=== PATIENT | female | born 1935 | race Caucasian/White ===

== ENCOUNTER 2016-10-12 07:37 | Emergency (ER) | payer MEDICARE, OTHER ==
[~2016-10-12] VITALS: Ht 162.6 cm; Wt 46.0 kg
[~2016-10-12 07:37] MED LIST: LISI-571 PO; METF500T4 PO
[2016-10-12 07:41] VITALS: BP 171/98; PULSE 87; RESP 14; O2SAT 95
--- NOTE | 2016-10-12 08:03 | ED.REPORT ---
HPI-General Illness Date of Service Oct 12, 2016 ED Provider: Jayant Hart MD Pt is a an 81 y.o. female with a hx of asthma, DM, and malignant neoplasm of esophagus (remission) who presents to the ED accompanied by her c/o malaise onset 1 week ago. Pt reports associated decreased PO intake, weakness, lethargy, recent weight loss, mild productive cough, diarrhea, and chills. Denies fever, nausea, vomiting, dysuria, chest pain, abdominal pain, and SOB. Pt was seen by her PCP Dr. Barrett 4 days ago and dx with cachexia, a work-up including chest x-ray and blood work was performed. Pt's states that she is extremely poor at remembering to take her medication and he has to remind and encourage her too. He has not administered any of her medication within the last 12 hours as he is concerned to do so due to her current condition. Pt is a poor historian and defers to her to answer questions. Nursing Notes Stated Complaint: COUGH, NO EATING Chief Complaint: General Complaint Nursing Notes Reviewed: Yes Allergies: Coded Allergies: No Known Drug Allergies (Verified Allergy, Unknown, 02/09/16) Scheduled Lisinopril (Lisinopril) 5 Mg Tablet 5 MG PO DAILY Metformin (Metformin) 500 Mg Tablet 500 MG PO DAILY General Time Seen by MD: 08:02 Chief Complaint Not feeling well (Malaise) Hx Obtained From: Patient Arrived By: Walk-in Sudden in Onset?: Yes Onset Occurred: 1 week ago Symptom Duration: Since onset Severity: Current: No pain currently Severity: Maximum: No pain Past Medical History Past Medical History malignant neoplasm of esophagus-remission Reports: Asthma, Diabetes mellitus Reports: Urinary tract infection Past Surgical History Gum surgery Reports: Tonsillectomy Smoking History Never Smoker Social History Alcohol Use: 1-3 per day Drug Use: Denies drug use Other Social History: , Local resident Ambulatory Status Independent Review of Systems Decreased PO intake Full Review of Systems Constitutional: Reports: Chills, Lethargy, Malaise, Recent wt loss, Weakness - generalized, Denies: Fever Respiratory: Reports: Prod cough, clear (Mild), Denies: Shortness of breath Cardiovascular: Denies: Chest pain GI: Reports: Diarrhea, Denies: Abdominal pain, Nausea, Vomiting Female: Denies: Dysuria Complete sys rev & neg: except as marked. Physical Exam Vital Signs Vital Signs Date Time Temp Pulse Resp B/P Pulse Ox O2 Delivery O2 Flow Rate FiO2 10/12/16 07:41 36.0 87 14 171/98 95 Room Air Initial VS: Reviewed Extremities: Vascular intact, Neuro intact Skin: Warm, Dry, No cyanosis Neurologic: Alert, Oriented, Nonfocal Psychiatric: Mood/affect normal, Behavior normal, Normal thought content General/Constitutional: Awake, Alert, No acute distress, Not toxic appearing Appearance / Presentation: Positive: Cachectic Head / Eyes: Atraumatic, Normocephalic Pupils: Positive: Pinpoint Respiratory / Chest: No respiratory distress, No rales Wheezing / Retractions: Positive: Wheezing expiratory (diffuse) Rhonchorous cough Cardiovascular: No murmurs Heart Rate / Rhythm: Positive: Irregular rhythm, Tachycardia Abdomen: Atraumatic, Soft, No distention Interpretation & Diagnostics ECG Interpretation Time: 08:50 Interpreted by: ED physician Normal ECG Interpretation: Normal rate (77) Rhythm / Conduction: Atrial fibrillation Re-Eval/Medical Decision Med Decision/Clinical Course I have reviewed all recent testing from the outpatient realm from the of this month which is stable or benign. I discussed the case in detail with Dr. Barrett, primary care, there seems to be some degree of mild dementia as well. Her examination for me is very reassuring. I think that outpatient follow-up is appropriate and of arranged for an outpatient GI appointment at Dr. Barrett' s request with Ms. Garcia at 8:45 in the morning on the of this month Saturday. Source of Hx: Old records Time of Eval: 09:48 Re-Evaluation/Progress Note: Pt rechekced. states that pt has been complaining of bilateral earache. TM's are dull but no erythema or fluid present. states that pt is having problem with short-term memory. Discussed plan for discharge, pt and understand and agree with plan. Consultation : Referral / Consult Name: Elissa Barrett MD Consulted With: Primary care physician Call Returned at: 09:01 Note: Consulted with Dr. Barrett about pt condition. Recommends weighing her and GI consult. Counseled Regarding: Diagnosis, Lab results Discharge & Departure Primary Impression: Malaise and fatigue Additional Impression: Cough Disposition: Home Discharge Condition All VS Reviewed: Yes Condition: No Change Additional Instructions: Thank you for entrusting us with your care today. After reviewing your lab results, x-ray, and consulting with Dr. Barrett I am reassured that your symptoms are not due to an immediately dangerous condition. I do however recommend you follow-up with GI regarding your history of esophageal cancer. You have a scheduled appointment for October 17 at 8:45 in the morning with Ms. Garcia Referrals: Elissa Barrett MD (PCP) Scribe Attestation Portions of this note were transcribed by Cierra Cross. I, Dr. Hart personally performed the history, physical exam and medical decision-making; I reviewed and confirmed the accuracy of the information in the transcribed note. Signed by: Alfredo Bardales, 10/12/16 and 0956. copies to: Elissa Barrett MD, Kirk H MD Oct 12, 2016 08:03 CIERRA CROSS Oct 12, 2016 08:10
[2016-10-12 10:12] VITALS: BP 163/83; PULSE 73; O2SAT 95
[2016-12-03] MEDS ORDERED: DEX1 PO (08:44)
[2016-12-03] MEDS ORDERED: ALBU8.5H2 INHALATION (08:44)
[2016-12-03] MEDS ORDERED: OXYC-474 PO (08:44)
[2016-12-03] MEDS ORDERED: OMEP20CA11 PO (08:44)
[2016-12-03] MEDS ORDERED: ASPI-973 PO (08:44)
== END 2016-10-12 10:13 | disposition home or self-care (01) ==
LOC: SED 07:37
DX: R53.81 Other malaise (principal); R05 Cough; E11.9 Type 2 diabetes mellitus without complications; Z79.84 Long term (current) use of oral hypoglycemic drugs; Z85.01 Personal history of malignant neoplasm of esophagus

== ENCOUNTER 2016-10-14 09:07 | Emergency (ER) | payer MEDICARE, OTHER ==
[~2016-10-14] VITALS: Ht 162.6 cm; Wt 44.1 kg
[2016-10-14 09:10] VITALS: BP 181/90; PULSE 85; RESP 15; O2SAT 94
[2016-10-14] MEDS ORDERED: 0.9% Sodium Chloride 1,000 ML IV ONE (09:34)
--- NOTE | 2016-10-14 09:34 | ED.REPORT ---
HPI-General Illness Date of Service Oct 14, 2016 ED Provider: Cuauhtemoc James DO An 81 year old female with a history of asthma, diabetes mellitus, recurrent UTI 's and previous neoplastic esophageal cancer (remission) presents to the ED complaining of generalized weakness that began one week ago. is currently expressing concern because of decreased appetite, 10-15lbs of weight loss and worsening fatigue. He denies solid food intake for the past week. Symptoms have become increasingly worse since onset. Patient has a new onset cough that began 3 weeks ago. Patient was recently seen in the ED on 10/12 for similar symptoms and was discharged in good condition after a reassuring consult with the patient's PCP. Patient denies pain during swallowing or dysphagia. She currently has an appointment scheduled with a GI specialism for . BS was recorded at 109 this morning. Nursing Notes Stated Complaint: WEAKNESS Chief Complaint: General Complaint Nursing Notes Reviewed: Yes Allergies: Coded Allergies: No Known Drug Allergies (Verified Allergy, Unknown, 02/09/16) Scheduled Azithromycin (Zithromax) 250 Mg Tablet 250 MG PO DAILY Lisinopril (Lisinopril) 5 Mg Tablet 5 MG PO DAILY Metformin (Metformin) 500 Mg Tablet 500 MG PO DAILY General Time Seen by MD: 09:17 Chief Complaint Weakness Hx Obtained From: Patient Arrived By: Walk-in Sudden in Onset?: No Onset Occurred: 1 week ago Symptom Duration: Since onset Associated with: Reports: Cough Additional Notes: Fatigue Decreased appetite Pertinent Negative: Pt denies other symptoms Recent Healthcare: No recent hospitalization, Recent doctor visit Past Medical History Past Medical History Malignant neoplasm of esophagus-remission Reports: Asthma, Diabetes mellitus Reports: Urinary tract infection Past Surgical History Gum surgery Reports: Tonsillectomy Smoking History Never Smoker Social History Alcohol Use: 1-3 per day Drug Use: Denies drug use Other Social History: Good social support, , Local resident Ambulatory Status Independent Review of Systems Decreased appetite Denies dysphagia Full Review of Systems Constitutional: Reports: Fatigue, Recent wt loss (10-15 lbs ), Weakness - generalized, Denies: Chills, Fever Ears / Nose / Throat: Denies: Sore throat, Throat pain Respiratory: Reports: Non-productive cough, Denies: Shortness of breath GI: Denies: Abdominal pain, Nausea, Vomiting Endocrine: Reports: Weight loss Neurologic: Denies: Change LOC Complete sys rev & neg: except as marked. Physical Exam Vital Signs Vital Signs Date Time Temp Pulse Resp B/P Pulse Ox O2 Delivery O2 Flow Rate FiO2 10/14/16 13:51 36.9 78 16 113/67 98 Room Air 10/14/16 10:55 37 95 20 148/69 97 Room Air 10/14/16 09:10 35.8 85 15 181/90 94 Room Air Initial VS: Reviewed Neck: Supple, Non-tender, Full range of motion Neurologic: Alert, Oriented, Nonfocal Psychiatric: Mood/affect normal, Behavior normal, Normal thought content General/Constitutional: Awake, Alert Appearance / Presentation: Positive: Cachectic Head / Eyes: Atraumatic, Normocephalic, PERRL ENT: Atraumatic, Airway patent, Mucous membranes moist, Pharynx NL (Oropharynx normal ) Respiratory / Chest: Atraumatic, No respiratory distress Rales / Rhonchi: Positive: Rhonchi diffuse (rhonchorous cough) RESPIRATORY: coarse expiratory lung sounds in the anterior lung ferrara and the right lower lobe Cardiovascular: Heart rate NL, Heart sounds NL, No murmurs Heart Rate / Rhythm: Positive: Irreg irregular rhythm Abdomen: Atraumatic, Soft, Non-tender, BS normoactive, No distention Upper Extremities Upper Extremity / MS: Atraumatic, Neurologic intact, Vascular intact Lower Extremity / Pelvis / MS: Atraumatic, Neurologic intact, Vascular intact, No edema Skin: Atraumatic, Color NL, Warm, Dry Color / Condition: Positive: Skin turgor poor (Loose) Interpretation & Diagnostics Lab Results Interpretation Result Diagram: 10/14/16 1008 10/14/16 1008 Test 10/14/16 10:08 10/14/16 13:00 White Blood Count 7.7th/mm3 (3.8-10.1) Red Blood Count 5.77mil/mm3 (3.90-5.20) Hemoglobin 12.2g/dL (12.0-15.6) Hematocrit 38.7% (35.0-46.0) Mean Corpuscular Volume 67.1fL (81-100) Mean Corpuscular Hemoglobin 21.1pg (27.0-35.0) Mean Corpuscular Hemoglobin Concent 31.5% (32.0-37.0) Red Cell Distribution Width 20.4% (12.3-15.4) Platelet Count 199bil/L (150-400) Neutrophils (%) (Auto) 71.7% (40-74) Lymphocytes (%) (Auto) 12.0% (14-46) Monocytes (%) (Auto) 14.5% (4-12) Eosinophils (%) (Auto) 0.7% (0-5) Basophils (%) (Auto) 0.3% (0-3) Sodium Level 128mEq/L (134-144) Potassium Level 3.6mEq/L (3.5-5.2) Chloride Level 85mEq/L (97-108) Carbon Dioxide Level 22mmol/L (18-29) Blood Urea Nitrogen 11mg/dL (8-27) Creatinine 0.72mg/dL (0.57-1.00) Estimat Glomerular Filtration Rate 112mL/min (>59) Glucose Level 132mg/dL (60-99) Lactic Acid Level 1.5mmol/L (0.4-2.0) Calcium Level 9.1mg/dL (8.5-10.1) Magnesium Level 1.7mg/dL (1.6-2.6) Total Bilirubin 1.0mg/dL (0.0-1.2) Aspartate Amino Transf (AST/SGOT) 32U/L (0-50) Alanine Aminotransferase (ALT/SGPT) 17U/L (0-32) Alkaline Phosphatase 52U/L (25-165) Pro-B-Type Natriuretic Peptide 3058pg/mL (0-738) Total Protein 7.4g/dL (6.4-8.4) Albumin 4.4g/dL (3.4-5.0) Procalcitonin 0.05ng/mL (0.00-0.08) Thyroid Stimulating Hormone (TSH) 2.600uIU/mL (0.450-4.500) Urine Color Straw (YELLOW) Urine Appearance Clear (CLEAR,HAZY) Urine pH 7.5 (5.0-8.0) Urine Specific Shannon 1.006 (1.003-1.035) Urine Protein Negativemg/dL (NEG,TRACE) Urine Glucose (UA) Negativemg/dL (NEGATIVE) Urine Ketones Negativemg/dL (NEGATIVE) Urine Occult Blood Negative (NEGATIVE) Urine Nitrite Negative (NEGATIVE) Urine Bilirubin Negative (NEGATIVE) Urine Urobilinogen Normalmg/dL (NORMAL) Urine Leukocyte Esterase Negative (NEGATIVE) Urine RBC 0-2/hpf (0-2) Urine WBC 0-5/hpf (0-5) Urine Epithelial Cells Few/hpf (NONE-MOD) Urine Crystals None seen (NONE SEEN) Urine Bacteria None/hpf (NONE-FEW) Urine Hyaline Casts None/lpf (NONE) Urine Granular Casts None seen (NONE SEEN) Urine Waxy Casts None seen (NONE SEEN) Urine Red Blood Cell Casts None seen (NONE SEEN) Urine White Blood Cell Casts None seen (NONE SEEN) Urine Mucus None seen (None Seen) Urine Trichomonas None seen (NONE SEEN) Urine Yeast None (NONE SEEN) Urinalysis Comment None Urine Culture Reflexed Not indicated ECG Interpretation ECG Interpretation: Atrial fibrillation Rate 81 bpm Prolonged QT interval old anteroseptal infarct ols inferior infarct Time: 11:07 Interpreted by: ED physician Normal ECG Interpretation: No change from prior ECGs (10/12) X-Ray Chest Interpretation Chest Xray Interpretation: IMPRESSION: No change in left medial lung base pneumonia; Follow up plain films of the chest are recommended to ensure resolution, and to exclude underlying or central malignancy. Dictated by: Deshawn Barber M.D. on 10/14/2016 at 10:31 Interpretation / Wet Read by: Interpret - Radiologist Re-Eval/Medical Decision Med Decision/Clinical Course 81-year-old female presents with her concerned with decreased oral intake and feeling weak. Patient denies any pain, but states that she just does not feel hungry. She has had a ongoing wet cough. Chest x-ray today shows left lower lobe pneumonia which was demonstrated in previous x-ray. Patient and her note that she has not been treated with antibiotics for this finding. Obviously this effusion could be present from CHF or recurrence of her cancer, but pneumonia could certainly explain a decrease in appetite and weakness in an 81-year-old so we will elect to treat her for community-acquired pneumonia. She was given the first dose of azithromycin 500 mg orally in the ER today and also given ceftriaxone 1 g prior to discharge. She will finish the azithromycin prescription as an outpatient and follow-up with her primary care provider. I believe she also has follow-up with oncology in progress. I have also encouraged her to use ensure drinks as she seemed to do very well with 2 drinks in the ER today. She had moderate hyponatremia which was similar to one week ago, maybe slightly worse because of decreased fluid intake but was given 1 L of fluids today in the ER. She looked much better after her fluids and food intake here. Time of Eval: 09:34 Patient Status: Condition improved Re-Evaluation/Progress Note: PO trial is assigned. Time of Eval: 11:30 Patient Status: Condition improved Re-Evaluation/Progress Note: Patient is rechecked. She passes the PO trial. is informed of her lab results, X-ray results, EKG results and diagnosis. All of the patient's questions are adressed. She understands and agrees with the treatment plan. Counseled Regarding: Diagnosis, Lab results, Need for follow-up, When/why to return to ED Discharge & Departure Primary Impression: Community acquired pneumonia Additional Impressions: Anorexia Weakness Hyponatremia Disposition: Home Discharge Condition All VS Reviewed: Yes Condition: Stable Patient Instructions: Community-acquired Pneumonia (ED) Additional Instructions: Thank you for trusting us with your care this morning. Your emergency department evaluation including examination, lab work, EKG and chest X-ray revealed pneumonia. 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 Drink one with each meal. Please take 250 mg of azithromycin once per day to completion starting tomorrow. You received the first dose today in the emergency department. Schedule a follow-up appointment with your primary care physician in the next 2- 3 days for a recheck. Please return to the emergency department immediately for any new or worsening conditions including any shortness of breath, chest pain, fevers, chills, numbness/tingling or loss of consciousness. Referrals: Elissa Barrett MD (PCP) Elinoribmanuel Attestation Portions of this note were transcribed by Santosh Castillo. I, Dr. James personally performed the history, physical exam and medical decision-making; I reviewed and confirmed the accuracy of the information in the transcribed note. Signed by: Alfredo Maldonado, 10/14/16 1200. copies to: Elissa Barrett MD, Gary R DO Oct 14, 2016 09:34 SANTOSH CASTILLO Oct 14, 2016 09:39
[2016-10-14 10:20] LABS: BASOPHILS % (AUTO) 0.3 % (0-3); EOSINOPHILS % (AUTO) 0.7 % (0-5); MONOCYTES % (AUTO) 14.5 % (4-12); Mean Corpuscular Hemoglobin 21.1 pg (27.0-35.0); Mean Corpuscular Volume 67.1 fL (81-100); NEUTROPHILS % (AUTO) 71.7 % (40-74); Platelet Count 199 bil/L (150-400)
--- NOTE | 2016-10-14 10:33 | DRSVH ---
PROCEDURE: X-RAY CHEST, TWO VIEWS ([id number]) INDICATIONS: cough, shortness of breath, anorexia TECHNIQUE: 2 views of the chest were acquired. COMPARISON: [facility], CR, XR CHEST 2VW, 10/08/2016, 14:29. FINDINGS: Surgical changes and devices: None. Lungs and pleura: No pleural effusions or pneumothorax. Moderate patchy airspace opacity within the left medial lung base is unchanged. Mediastinum: Mediastinal contours are normal. Heart size is normal. Bones and chest wall: No suspicious bony abnormalities. Soft tissues appear unremarkable. IMPRESSION: No change in left medial lung base pneumonia; Follow up plain films of the chest are adelaide mmended to ensure resolution, and to exclude underlying or central malignancy. Dictated by: Deshawn Barber M.D. on 10/14/2016 at 10:31 Approved by: Deshawn Barber M.D. on 10/14/2016 at 10:31
[2016-10-14 10:55] VITALS: BP 148/69; PULSE 95; RESP 20; O2SAT 97
[2016-10-14 11:19] LABS: Magnesium 1.7 mg/dL (1.6-2.6)
[2016-10-14] MEDS ORDERED: cefTRIAXone Inj 1,000 MG in Dextrose 5% Minibag Plus 50 ML IV ONE (11:40)
[2016-10-14 13:20] LABS: APPEARANCE,URINE CLEAR (CLEAR,HAZY); COLOR,URINE STRAW (YELLOW); PH,URINE 7.5 (5.0-8.0)
[2016-10-14 13:21] LABS: OCCULT BLOOD,URINE NEGATIVE (NEGATIVE); UROBILINOGEN,URINE NORMAL (NORMAL)
[2016-10-14] MEDS ORDERED: ZIT250 PO (13:35)
[2016-10-14 13:51] VITALS: BP 113/67; PULSE 78; RESP 16; O2SAT 98
[2016-12-03] MEDS ORDERED: OXYC-474 PO (08:44)
[2016-12-03] MEDS ORDERED: ASPI-973 PO (08:44)
[2016-12-03] MEDS ORDERED: DEX1 PO (08:44)
[2016-12-03] MEDS ORDERED: OMEP20CA11 PO (08:44)
[2016-12-03] MEDS ORDERED: ALBU8.5H2 INHALATION (08:44)
== END 2016-10-14 13:36 | disposition home or self-care (01) ==
LOC: SED 09:07
DX: J18.9 Pneumonia, unspecified organism (principal); R63.0 Anorexia; R53.1 Weakness; E87.1 Hypo-osmolality and hyponatremia; J45.909 Unspecified asthma, uncomplicated; E11.9 Type 2 diabetes mellitus without complications; Z79.84 Long term (current) use of oral hypoglycemic drugs
CPT/HCPCS: 36415; 71020; 80053; 81000; 83605; 83735; 83880; 84145; 84443; 85025; 93005; 96361; 96365; 99285; J0696; J7030

== ENCOUNTER 2016-11-27 07:17 | Emergency (ER) | payer MEDICARE, OTHER ==
[~2016-11-27] VITALS: Ht 162.6 cm; Wt 47.7 kg
[~2016-11-27 07:17] MED LIST changes: +ZIT250 PO
[2016-11-27 07:24] VITALS: BP 120/82; PULSE 104; RESP 15; O2SAT 100
--- NOTE | 2016-11-27 07:37 | ED.REPORT ---
HPI-General Illness Date of Service November 27, 2016 ED Provider: Edgard Major DO An 81 year old female with a history of diabetes, atrial fibrillation and UTI presents to the ED complaining of bilateral lower extremity pain. The pt has been experiencing lower extremity edema for several months, which extends to her knee. This has been accompanied by lower extremity pain and shortness of breath with exercise, though she denies chest pain and has been able to walk. The pt has seen her PCP for these symptoms and had a normal x-ray at that time. The pt has been prescribed pain medications but has been reluctant to take them. Nursing Notes Stated Complaint: PAIN IN BOTH LEGS Chief Complaint: General Complaint Nursing Notes Reviewed: Yes Allergies: Coded Allergies: No Known Drug Allergies (Verified Allergy, Unknown, 02/09/16) Scheduled Azithromycin (Zithromax) 250 Mg Tablet 250 MG PO DAILY Ferrous Sulfate (Iron) 325 Mg Capsule.er 325 MG PO TID Furosemide (Furosemide) 20 Mg Tab 20 MG PO DAILY Lisinopril (Lisinopril) 5 Mg Tablet 5 MG PO DAILY Metformin (Metformin) 500 Mg Tablet 500 MG PO DAILY Pantoprazole DR (Protonix) 40 Mg Tablet 40 MG PO BID General Time Seen by MD: 07:32 Chief Complaint Other (bilateral lower extremity pain) Hx Obtained From: Patient, Spouse Arrived By: Walk-in Sudden in Onset?: No Onset Occurred: More than a week ago... Symptom Duration: Since onset Recent Healthcare: No recent hospitalization, Recent doctor visit Similar Sx Previous: No Past Medical History Past Medical History Malignant neoplasm of esophagus-remission Atrial fibrillation Reports: Asthma, Diabetes mellitus Reports: Urinary tract infection Past Surgical History Gum surgery Reports: Tonsillectomy Smoking History Never Smoker Social History Alcohol Use: 1-3 per day Drug Use: Denies drug use Other Social History: Good social support, , Local resident Ambulatory Status Independent Review of Systems shortness of breath with exertion Full Review of Systems Respiratory: Denies: Non-productive cough Cardiovascular: Denies: Chest pain GI: Denies: Abdominal pain Musculoskeletal: Reports: Extremity pain, Extremity swelling, Denies: Neck pain Skin: Denies Rash Complete sys rev & neg: except as marked. Physical Exam Vital Signs Vital Signs Date Time Temp Pulse Resp B/P Pulse Ox O2 Delivery O2 Flow Rate FiO2 11/27/16 11:04 36.1 84 20 133/64 99 Room Air 11/27/16 09:28 84 20 133/64 99 11/27/16 07:24 36.1 104 15 120/82 100 Room Air Initial VS: Reviewed General/Constitutional: Awake, Alert Head / Eyes: Atraumatic, Normocephalic, PERRL, EOMI ENT: Atraumatic, Airway patent, Mucous membranes moist Neck: Atraumatic, Supple, Full range of motion Respiratory / Chest: Atraumatic, Breath sounds NL, Breath sounds = bilat, No respiratory distress Cardiovascular: Heart rate NL, Regular rhythm, Heart sounds NL Abdomen: Atraumatic, Soft, Non-tender Back: Atraumatic, Full range of motion Upper Extremities Upper Extremity / MS: Atraumatic, Full range of motion Lower Extremity / Pelvis / MS: Full range of motion L>R 2+ lower extremity edema up to proximal tibia Skin: Color NL, No rash, Warm, Dry Rectum / Perineum: Atraumatic, No discharge, No lesions light brown stool guaiac positive Neurologic: Oriented X3, Speech NL, No motor deficits, No sensory deficits Psychiatric: Affect NL, Mood NL Interpretation & Diagnostics Lab Results Interpretation Result Diagram: 11/27/16 0822 11/27/16 0822 Test 11/27/16 08:22 White Blood Count 5.6th/mm3 (3.8-10.1) Red Blood Count 4.02mil/mm3 (3.90-5.20) Hemoglobin 8.7g/dL (12.0-15.6) Hematocrit 28.6% (35.0-46.0) Mean Corpuscular Volume 71.1fL (81-100) Mean Corpuscular Hemoglobin 21.6pg (27.0-35.0) Mean Corpuscular Hemoglobin Concent 30.4% (32.0-37.0) Red Cell Distribution Width 21.1% (12.3-15.4) Platelet Count 215bil/L (150-400) Neutrophils (%) (Auto) 69.3% (40-74) Lymphocytes (%) (Auto) 14.5% (14-46) Monocytes (%) (Auto) 11.7% (4-12) Eosinophils (%) (Auto) 3.6% (0-5) Basophils (%) (Auto) 0.7% (0-3) Sodium Level 136mEq/L (134-144) Potassium Level 4.9mEq/L (3.5-5.2) Chloride Level 99mEq/L (97-108) Carbon Dioxide Level 22mmol/L (18-29) Blood Urea Nitrogen 15mg/dL (8-27) Creatinine 0.95mg/dL (0.57-1.00) Estimat Glomerular Filtration Rate 81mL/min (>59) Glucose Level 179mg/dL (60-99) Calcium Level 9.0mg/dL (8.5-10.1) Magnesium Level 2.0mg/dL (1.6-2.6) Iron Level 17ug/dL (35-150) Total Iron Binding Capacity 419ug/dL (250-450) Percent Iron Saturation 4%sat (15-50) Unsaturated Iron Binding 402.0ug/dL Ferritin 7ng/mL (13-150) Total Bilirubin 0.7mg/dL (0.0-1.2) Aspartate Amino Transf (AST/SGOT) 20U/L (0-50) Alanine Aminotransferase (ALT/SGPT) 10U/L (0-32) Alkaline Phosphatase 54U/L (25-165) Troponin T 0.010ug/L (0.0-0.011) Pro-B-Type Natriuretic Peptide 2751pg/mL (0-738) Total Protein 6.6g/dL (6.4-8.4) Albumin 4.1g/dL (3.4-5.0) Hold [place] Top Tube Received (Received) ECG Interpretation ECG Interpretation: atrial fibrillation with a rate of 84 low voltage, extremity and precordial leads probable anteroseptal infarct, old Time: 08:53 Interpreted by: ED physician X-Ray Chest Interpretation Chest Xray Interpretation: IMPRESSION: Small bilateral pleural effusions. Dictated by: Eileen Diaz M.D. on 11/27/2016 at 8:30 Approved by: Eileen Diaz M.D. on 11/27/2016 at 8:35 Interpretation / Wet Read by: Interpret - Radiologist Re-Eval/Medical Decision Med Decision/Clinical Course Patient chief complaint is ankle pain however this seems to be resultant of symmetric bilateral lower extremity edema that does not appear to be infectious or due to a deep vein thrombosis on clinical exam. She does have bilateral pleural effusions and an elevated proBNP. She does not describe exertional chest pain or shortness of breath think this represents severe decompensated CHF though she may have CHF and it seems that furosemide is appropriate at this time. Additionally her hemoglobin has dropped that it is not at a critical level where emergent transfusion is indicated. Her guaiac is positive her stool is light brown. It appears that she has a chronic GI bleed. GI is consulted recommends Protonix, iron therapy and will help to arrange close outpatient endoscopy. Additionally furosemide as prescribed and strict return and follow-up precautions are given. Source of Hx: Old records Time of Eval: 09:38 Re-Evaluation/Progress Note: Pt rechecked, who is comfortable. Rectal examination is performed. Time of Eval: 11:00 Re-Evaluation/Progress Note: Pt rechecked, who is feeling well. The diagnosis and plan for discharge are discussed. The pt understands and agrees with the plan. All questions are addressed at this time. Consultation : Referral / Consult Name: Abhay Espinal MD Call Returned at: 10:03 Manager Testing: Agrees with eval, Agrees with plan Note: Spoke with Dr. Espinal, GI, regarding pt's case. Dr. Espinal recommends Protonix and discharge on iron 2 to 3 times daily. He will arrange for endoscopy. Counseled Regarding: Diagnosis, Lab results, Need for follow-up, When/why to return to ED Discharge & Departure Primary Impression: CHF (congestive heart failure) Additional Impressions: GI bleed Iron deficiency anemia due to chronic blood loss Disposition: Home Discharge Condition All VS Reviewed: Yes Condition: Stable Additional Instructions: The reason you have ankle pain is due to swelling in your legs which is likely caused by mild congestive heart failure. You should begin taking Lasix daily. You should call your marina dry dock manager or your primary doctor for an urgent outpatient echocardiogram. Incidentally, you have anemia and some microscopic intestinal bleeding found on exam today. It is not at the point where you need a blood transfusion as of now , however you should begin iron therapy and protonix in order to improve your anemia. You will also need close follow-up with gastroenterology. I have spoken with the global logistics analyst who took down your information in his office will call you today or tomorrow tomorrow to help coordinate an outpatient endoscopy. Begin taking the medications as prescribed. Return to the ER if you develop severe shortness of breath, chest pain, obvious bleeding, or any other concerns. Referrals: Elissa Barrett MD (PCP) Scribe Attestation Portions of this note were transcribed by Constance Pandey. I, Dr. Major personally performed the history, physical exam and medical decision-making; I reviewed and confirmed the accuracy of the information in the transcribed note. Signed by: Alfredo Alfaro, 11/27/2016 and 1101. copies to: Elissa Barrett MD, Timothy S DO November 27, 2016 07:37 CONSTANCE PANDEY November 27, 2016 08:04
[2016-11-27 08:34] LABS: BASOPHILS % (AUTO) 0.7 % (0-3); EOSINOPHILS % (AUTO) 3.6 % (0-5); MONOCYTES % (AUTO) 11.7 % (4-12); Mean Corpuscular Hemoglobin 21.6 pg (27.0-35.0); Mean Corpuscular Volume 71.1 fL (81-100); NEUTROPHILS % (AUTO) 69.3 % (40-74); Platelet Count 215 bil/L (150-400)
--- NOTE | 2016-11-27 08:36 | DRSVH ---
PROCEDURE: X-RAY CHEST ONE VIEW, PORTABLE ([id number]) INDICATIONS: lower extremity edema TECHNIQUE: One view of the chest was acquired. COMPARISON: [facility], CR, XR CHEST 2VW, 10/14/2016, 10:05. FINDINGS: Surgical changes and devices: None. Lungs and pleura: There is a small right pleural effusion which is new when compared with the prior c hest film dated 10/14/16. Small left pleural effusion or pleural blunting is redemonstrated. No pneumo thorax. Mediastinum: Mediastinal contours appear normal. Heart size is normal. Bones and chest wall: No suspicious bony lesions. Overlying soft tissues appear unremarkable. IMPRESSION: Small bilateral pleural effusions. Dictated by: Eileen Diaz M.D. on 11/27/2016 at 8:30 Approved by: Eileen Diaz M.D. on 11/27/2016 at 8:35
[2016-11-27 08:59] LABS: TROPONIN T 0.01 ug/L (0.0-0.011)
[2016-11-27 09:28] VITALS: BP 133/64; PULSE 84; RESP 20; O2SAT 99
[2016-11-27] MEDS ORDERED: Pantoprazole 4 mg/mL 10 mL Inj IVPUSH ONE (09:50)
[2016-11-27] MEDS ORDERED: Pantoprazole 40 mg ER24 Tablet PO ONE (09:55)
[2016-11-27] MEDS ORDERED: FUR20 PO (10:56)
[2016-11-27] MEDS ORDERED: PANT40TA2 PO (10:56)
[2016-11-27] MEDS ORDERED: FERR325C PO (10:56)
[2016-11-27 11:04] VITALS: BP 133/64; PULSE 84; RESP 20; O2SAT 99
[2016-12-03] MEDS ORDERED: DEX1 PO (08:44)
[2016-12-03] MEDS ORDERED: ALBU8.5H2 INHALATION (08:44)
[2016-12-03] MEDS ORDERED: ASPI-973 PO (08:44)
[2016-12-03] MEDS ORDERED: OMEP20CA11 PO (08:44)
[2016-12-03] MEDS ORDERED: OXYC-474 PO (08:44)
== END 2016-11-27 11:05 | disposition home or self-care (01) ==
LOC: SED 07:17
DX: I50.9 Heart failure, unspecified (principal); K92.2 Gastrointestinal hemorrhage, unspecified; D50.0 Iron deficiency anemia secondary to blood loss (chronic); I48.91 Unspecified atrial fibrillation; E11.59 Type 2 diabetes mellitus with other circulatory complications; J45.909 Unspecified asthma, uncomplicated; Z79.84 Long term (current) use of oral hypoglycemic drugs

== ENCOUNTER 2016-12-04 11:55 | Day surgery (SDC) | payer MEDICARE, OTHER ==
[~2016-12-04] VITALS: Ht 162.6 cm; Wt 49.0 kg
--- NOTE | 2016-12-04 07:53 | PCM.HPANE ---
Patient Data Surgeon Admitting Provider: Attending Provider:Abhay Espinal MD Primary Care Physician:Elissa Barrett MD Other Provider:Demetris Faustin Anesthesia Reason for Visit History Of Esophageal Cancer Ht/WT & BMI Body Mass Index Allergies Coded Allergies: No Known Drug Allergies (Verified Allergy, Unknown, 12/03/16) Past Anesthesia History Anesthesia History: Denies:: Abnormal Airway, Anesthesia Reactions, Difficult Intubation, Fam Anesthesia Reaction, Fam Malignant Hypertherm, Malignant Hyperthermia Diabetes History Hx Diabetes?: Yes (NIDDM) MRSA MRSA: No Medications Blood Thinner: Aspirin Active Scripts Pantoprazole DR (Protonix)40 Mg Lcoszh68 Mg PO BID #60 TABLET Ref 0 Prov:Edgard Major DO 11/27/16 Ferrous Sulfate (Iron)325 Mg Capsule.er325 Mg PO TID #90 TABLET Prov:Edgard Major DO 11/27/16 Furosemide 20 Mg Tab20 Mg PO DAILY #10 TABLET Ref 0 Prov:Edgard Major DO 11/27/16 Reported Medications Oxycodone (Roxicodone)5 Mg Tablet5 Mg PO Q4H PRN For Pain Ref 0 12/03/16 Omeprazole 20 Mg Capsule.dr20 Mg PO DAILY Ref 0 12/03/16 Aspirin 81 Mg Tgwiwm52 Mg PO DAILY Ref 0 12/03/16 Albuterol HFA (Proair HFA)8.5 Gm Hfa.aer.ad2 Puffs INHALATION Q4H #1 INHALER 12/03/16 Lisinopril 5 Mg Tablet5 Mg PO DAILY #30 TABLET Ref 0 07/13/16 Metformin 500 Mg Srvdce905 Mg PO DAILY 05/16/16 Discontinued Reported Medications Dexamethasone 1 Mg Tab1 Mg PO DAILY Ref 0 12/03/16 Discontinued Scripts Azithromycin (Zithromax)250 Mg Nfjcsh121 Mg PO DAILY #4 TABLET Ref 0 Prov:Cuauhtemoc James DO 10/14/16 History History of ENT Problems?: No HEENT History: Denies:: Abnormal Airway Difficult Intubation Hearing Problem Denture Type: None Teeth Condition: Within Normal Limits Hx of Heart Problems?: No Cardiovascular History: Denies:: AICD Atrial Fibrillation Cardiac Surgery Chest Pain Congestive Heart Failure Edema Heart Murmur (aortic valve insufficiency, mitral valve regurgitation) Hypertension Irregular Heartbeat (h/o PSVT) Pacemaker Valvular Heart Disease Hx of Respiratory Problem?: Yes Respiratory History: Positive for:: Dyspnea (current) Denies:: Tuberculosis Hx Neurologic Problems?: Yes Neurological History: Positive for:: Dementia (r/t underlying disease, w/out behavioral disturbance) Denies:: CVA Hx of GI Problems?: Yes Hx of Problems?: Yes Genitourinary History: Positive for:: Urinary Tract Infection Female Hx: Denies:: Currently Endometriosis Pelvic Inflammatory Problems with Breasts? Hx Musculoskeletal Problems?: Yes Musculoskeletal History: Denies:: Joint Replacement Hx of Psycho/Social Problems?: No Psycho Social History: Denies:: Anxiety Hx Depression Hx Surgeries?: Yes (esophagus cancer several years ago and treated at [facility]) Hx Any Other Health Problems?: Yes Other History: Positive for:: Cancer (esophageal ca) Hospitalization Denies:: Endocrine Disease Thyroid Disease History Blood Transfusions: Denies:: Blood Transfuse Reaction Blood Transfusions Hx Diabetes: Yes (NIDDM) Hx Alcohol Use: NoHx Substance Use: No Smoking Status: Never Smoker Have You Smoked inLast 12 mo: No Stop/Bang Risk Assessment Category Category 1A: Patient has history of documented sleep apnea, and HAS NOT received any narcotic, sedative or anesthesia administration during this stay. Category 1B: Patient has history of documented sleep apnea, and HAS received any narcotic , sedative or anesthesia administration during this stay Category 2: Patient has SUSPECTED Obstructive Sleep Apnea, and HAS received any narcotic , sedative or anesthesia administration during this stay. Category 3: Patient has SUSPECTED Obstructive Sleep Apnea and HAS NOT received narcotic, sedative or anesthesia administration during this stay. Category 4: Outpatient in Procedural Areas with known sleep apnea or who screen positive for High Risk via the STOP/BANG questionnaire. Exam Exam General Appearance: Alert, Oriented X3, Cooperative, No Acute Distress HEENT/AIRWAY: MP 2, Neck Movement (FROM), Mouth Opening (WNL) Lungs: Normal Air Movement Heart: Exam Unremarkable Plan Impression Patient chart reviewed, patient interviewed and anesthestic plan with risks, benefits, and alternatives discussed, and informed consent obtained. ASA Physical Status: ASA2 Mod Systemic Disease Anesthetic Plan: GA Bene/Risks/Altern/Consents: Yes HP Complete Prior to Induction: Yes Adrian Mendez MD December 04, 2016 07:52
[~2016-12-04 11:55] MED LIST changes: +ALBU8.5H2 INHALATION; +ASPI-973 PO; +DEX1 PO; +FERR325C PO; +FUR20 PO; +OMEP20CA11 PO; +OXYC-474 PO; +PANT40TA2 PO
[2016-12-04] MEDS ORDERED: fentaNYL-PF 50 mCg/mL 2 mL Inj ONE (11:56)
[2016-12-04] MEDS ORDERED: Propofol 10,000 mCg/mL 20 mL Inj ONE (11:56)
[2016-12-04 12:20] VITALS: BP 134/77; PULSE 71; RESP 14; O2SAT 100
[2016-12-04] MEDS ORDERED: Lactated Ringer's 1,000 ML IV SCH (12:41)
[2016-12-04] MEDS ORDERED: MetoCLOpramide 5 mg/mL 2 mL Inj IVPUSH PRN (12:45)
[2016-12-04] MEDS ORDERED: Ondansetron 2 mg/mL 2 mL Inj IVPUSH PRN (12:45)
[2016-12-04] MEDS: Lactated Ringer's 1,000 ML IV ONE ×2 (12:48→13:01)
[2016-12-04 13:06] VITALS: BP 106/64; PULSE 88; RESP 14; O2SAT 100
--- NOTE | 2016-12-04 13:08 | PCM.ANEP1 ---
Post Anesthesia Phase 1 PACU Phase 1 Assessment Vital Signs Vital Signs Date Time Temp Pulse Resp B/P Pulse Ox O2 Delivery O2 Flow Rate FiO2 12/04/16 13:06 88 14 106/64 100 Room Air 12/04/16 12:20 37.2 71 14 134/77 100 Room Air Anesthetic Administered: GA Level of Alertness: Awake, talking GARCIA's with Equal Strength: Yes Pain: No Nausea or Vomiting: No Oxygen Delivery: Room Air Lungs: Normal Air Movement Complications: No Follow up Care: No Adrian Mendez MD December 04, 2016 13:08
[2016-12-04 13:16] VITALS: BP 106/58; PULSE 94; RESP 16; O2SAT 100
[2016-12-04 13:20] VITALS: BP 99/59; PULSE 93; RESP 16; O2SAT 100
--- NOTE | 2016-12-04 13:53 | ENDO ---
[address] [address] ENDOSCOPY PROCEDURE PATIENT: KRISTIN LOPEZ : 1935 MR#: [id number] ADMIT: 12/04/2016 JOB ID: [id number] PRIMARY PROVIDER: Zion Barrett MD. PROCEDURE: Esophagogastroduodenoscopy. INDICATIONS: An 81-year-old female with a history of esophageal cancer, status post gastric pull-up. She is being described as cachectic. She has lost a considerable amount of weight but apparently not any in very recent memory. She reports that she is moving her bowel every day, but eats small frequent meals. She is not having any problems with dysphagia. EQUIPMENT: [id number]. SEDATION: Monitored anesthesia as provided by Dr. Isai Mendez. COMPLICATIONS: None identified. PROCEDURE INFORMATION: After the risks and benefits were explained, written and verbal informed consent was obtained, the patient was brought into the endoscopy suite and placed into the left lateral decubitus position. Sedation was achieved as above and the scope introduced into the mouth through the bite block and advanced to the second portion of the duodenum. The scope was slowly withdrawn to carefully examine the mucosa for any defects or lesions. The stomach was ultimately decompressed, the scope removed from the patient who tolerated the procedure well. FINDINGS: 1. Esophagus: This is a very short anastomosis. Was at about 17 cm from the incisors. No stricturing, no mass lesions. No ulceration, no acute erosive changes. The scope easily traversed into the stomach. 2. Stomach: This was a normal-appearing gastric pull-up anatomy. However, there was a moderate amount of retained food and liquid debris in the antrum of the stomach. There was minimal gastropathy. No focal lesions or ulcers. The pyloric channel was normal and patent and I was easily able to navigate the scope through this. 3. Duodenum: No ulcers, no mass lesions. There was food debris still refluxing from further down into D3. I did not appreciate any mucosal pathology. ENDOSCOPIC DIAGNOSIS: 1. Normal gastric pull-up anatomy. 2. Retained gastrointestinal food debris. RECOMMENDATIONS: 1. I note the patient had a CAT scan in June which demonstrated early small-bowel obstruction pattern. I would recommend repeat exam with CT enterography, 2. In the meantime, the patient is encouraged to take a little bit of MiraLAX on a daily basis to hopefully push all contents through her GI tract a little more efficiently. 3. The patient is encouraged to remember just how important complete mastication is, whenever facing a problem like this. 4. Follow up in GI clinic short-term.
[2017-01-10] MEDS ORDERED: ASCO250T7 PO (17:35)
[2017-01-10] MEDS ORDERED: VIT1TABL83 PO (17:35)
[2017-01-10] MEDS ORDERED: CARV3.122 PO (17:35)
[2017-01-10] MEDS ORDERED: FURO40TA4 PO (17:35)
== END 2016-12-04 23:59 | disposition home or self-care (01) ==
LOC: END 11:55
PROVIDERS: ATTEND Internal Medicine Gastroenterology
DX: R64 Cachexia (principal); Z85.01 Personal history of malignant neoplasm of esophagus; E46 Unspecified protein-calorie malnutrition; R53.1 Weakness; G31.84 Mild cognitive impairment of uncertain or unknown etiology; E78.2 Mixed hyperlipidemia; E11.9 Type 2 diabetes mellitus without complications; I27.2 Other secondary pulmonary hypertension; I47.1 Supraventricular tachycardia; J90 Pleural effusion, not elsewhere classified; Z92.3 Personal history of irradiation; Z79.51 Long term (current) use of inhaled steroids; Z79.84 Long term (current) use of oral hypoglycemic drugs; Z79.82 Long term (current) use of aspirin
CPT/HCPCS: 43235; J3010; J7120

== ENCOUNTER 2017-01-11 02:55 | Day surgery (SDC) | payer MEDICARE, OTHER ==
[~2017-01-11] VITALS: Ht 162.6 cm; Wt 52.2 kg
[2017-01-11] VITALS (16 sets, daily range): BP systolic 95–129; BP diastolic 45–81; PULSE 67–79; RESP 10–23; O2SAT 93–100
[~2017-01-11 02:55] MED LIST changes: +ASCO250T7 PO; +CARV3.122 PO; -DEX1 PO; -FUR20 PO; +FURO40TA4 PO; -LISI-571 PO; -OMEP20CA11 PO; +VIT1TABL83 PO; -ZIT250 PO
[2017-01-11] MEDS ORDERED: 0.9% Sodium Chloride 1,000 ML IV SCH (07:15)
[2017-01-11 07:52] LABS: BASOPHILS % (AUTO) 0.4 % (0-3); EOSINOPHILS % (AUTO) 2.7 % (0-5); MONOCYTES % (AUTO) 12.1 % (4-12); Mean Corpuscular Hemoglobin 20.9 pg (27.0-35.0); Mean Corpuscular Volume 70.4 fL (81-100); NEUTROPHILS % (AUTO) 68.8 % (40-74); Platelet Count 242 bil/L (150-400)
[2017-01-11] MEDS ORDERED: Heparin 1,000 Units/500 mL NS Premix IV ONE (08:31)
[2017-01-11] MEDS ORDERED: Heparin 10,000 Unit/1,000 mL NS Premix IV ONE (08:31)
[2017-01-11 08:40] LABS: INR 1.12 ratio
[2017-01-11] MEDS ORDERED: 0.9% Sodium Chloride 250 ML ONE (09:24)
[2017-01-11] MEDS ORDERED: Adenosine 3 mg/mL 2 mL Inj ONE (09:24)
[2017-01-11] MEDS ORDERED: Heparin 1,000 Unit/mL 10 mL Inj ONE (09:27)
[2017-01-11] MEDS ORDERED: fentaNYL-PF 50 mCg/mL 2 mL Inj ONE (09:29)
[2017-01-11] MEDS ORDERED: Nitroglycerin 50,000 mcg/250 mL D5W Premix IV ONE (09:30)
[2017-01-11] MEDS ORDERED: Atropine 1 mg/10 mL (Code) Syringe ONE (09:30)
--- NOTE | 2017-01-11 11:13 | NUR ---
Heart Catheterization- Patient ambulated to [facility] with . Alert and oriented. Denies complaints this am. Patient states she has had nothing to eat or drink, except for meds as instructed. Reviewed procedure with patient and and questions answered.
--- NOTE | 2017-01-11 12:12 | NUR ---
Received Returned from lab head about 1225. Small soft lump at right groin at exoseal site. No change to this point. Venous sheath still in with NS at tko infusing. IVF infusing per order. Assisted with bedpan x2 without change in groin but feels frequently like she needs to go. 16fr chu placed by Yakov Wellington RN per prn order. VSS. Tele Afib. Awaiting landscaping and groundskeeping laborer to pull venous sheath.
--- NOTE | 2017-01-11 13:20 | CS94 ---
[address] [address] DIAGNOSTIC CARDIAC CATHETERIZATION PATIENT: KRISTIN LOPEZ : 1935 MR#: [id number] ADMIT: 01/11/2017 JOB ID: [id number] SERVICE DATE: 01/11/2017 PROCEDURE: 1. Right and left heart catheterization. 2. Selective coronary angiography. 3. Attempted fractional flow reserve of the circumflex. INDICATION: Congestive heart failure. Coronary artery disease. PROCEDURAL DETAILS: The reader is referred to the procedure log for complete details. Briefly, it was done via femoral approach. An 8-[place] sheath was placed in the vein and a 5-[place] in the artery. Vaughn-Lamar catheter and standard José Miguel catheters were used for the left. HEMODYNAMICS: PA pressure was 45/20 with a mean of 31. The pulmonary artery wedge pressure had a lot of catheter whip, but the mean pressure was 31 and a prominent V-wave was noted. RA pressure was a mean of 19. LV pressure was 166 with a LVEDP of 21. There was no gradient upon pullback. Cardiac output by thermodilution was 2.5 L/minute and by Romina was 3.1. PA sat was 37 and FA sat was 98%. ANGIOGRAPHY: 1. Left main: No significant disease. 2. LAD is a tortuous vessel in its mid segment. It has a long tubular stenosis of about 40% to 60%. 3. Circumflex is nondominant. It has an eccentric, very focal discrete lesion of about 60% in its mid segment past the take-off of the first obtuse marginal branch. 4. The ramus intermedius is a moderate-caliber vessel and has a 50% lesion in its proximal part. 5. The right coronary artery is a dominant vessel. It is subtotally occluded past the takeoff of a large RV branch. The distal vessel is seen faintly via [id number] collaterals and it is also seen via [id number] collaterals. 6. LV-gram revealed LVEF of around 45%. 7. There is 2+ MR. MR was worse with post PVC beats. There is inferobasal akinesis. 8. FFR of the circumflex was 0.98, thereby indicating it is not hemodynamically significant. We attempted to do an FFR in the LAD, but because of the marked tortuosity of the vessel, we could not deliver a wire into the apical LAD. We tried using a balloon to redirect this wire; however, were unsuccessful. Given the fact that the LAD is tortuous and it is about a 2-2.5 mm vessel at that point, I decided to treat her medically and not persist with wiring. 9. In summary, this lady has moderate mitral regurgitation. She has mild to moderate pulmonary hypertension. Her LV function is mildly impaired. She has modest coronary artery disease in the left system. Her right coronary is totally occluded distally but this supplies an area that has already been infarcted. I think, her overall medical condition and advanced age, medical therapy would be appropriate.
--- NOTE | 2017-01-11 16:06 | NUR ---
SHANE DISCHARGE ASSUMED CARE OF PT AT 1545. PT AMBULATED IN AMEZCUA AND RIGHT GROIN REMAINED SOFT, NON TENDER, NO BLEEDING OR HEMATOMA NOTED. DISCHARGE INSTRUCTIONS INCLUDING F/U APPT, MEDICATIONS, AND POST HEART CATH AND SEDATION INSTRUCTIONS WERE REVIEWED WITH PT AND AND THEY VERBALIZED UNDERSTANDING. LEFT AC IV WAS DISCONTINUED, WELL. PT WAS DISCHARGED AT 1600 IN W/C WITH TO PRIVATE CAR.
== END 2017-01-11 23:59 | disposition home or self-care (01) ==
LOC: SOUO 02:55
PROVIDERS: ATTEND Internal Medicine Cardiovascular Disease
DX: I25.10 Atherosclerotic heart disease of native coronary artery without angina pectoris (principal); I25.82 Chronic total occlusion of coronary artery; I50.9 Heart failure, unspecified; I27.2 Other secondary pulmonary hypertension; I34.0 Nonrheumatic mitral (valve) insufficiency; E11.9 Type 2 diabetes mellitus without complications; I07.1 Rheumatic tricuspid insufficiency; I48.2 Chronic atrial fibrillation; E78.2 Mixed hyperlipidemia; F03.90 Unspecified dementia, unspecified severity, without behavioral disturbance, psychotic disturbance, mood disturbance, and anxiety; Z85.01 Personal history of malignant neoplasm of esophagus; Z79.82 Long term (current) use of aspirin; Z79.84 Long term (current) use of oral hypoglycemic drugs; I47.2 Ventricular tachycardia
CPT/HCPCS: 36415; 80048; 85025; 85610; 93460; 93571; 99152; 99153; C1725; C1769; J0153; J1200; J1644; J2060; J3010; J7030; J7050; Q9967

== ENCOUNTER 2017-03-20 14:21 | Inpatient (IN) | payer MEDICARE, OTHER ==
[2017-03-20] VITALS (8 sets, daily range): BP systolic 93–124; BP diastolic 61–91; PULSE 80–119; RESP 18–26; O2SAT 94–99
[~2017-03-20] VITALS: Ht 162.6 cm; Wt 57.2 kg
[~2017-03-20 14:21] MED LIST changes: -ALBU8.5H2 INHALATION; -OXYC-474 PO; -PANT40TA2 PO
--- NOTE | 2017-03-20 15:33 | DRSVH ---
PROCEDURE: X-RAY CHEST ONE VIEW, PORTABLE ([id number]) INDICATIONS: infection TECHNIQUE: One view of the chest was acquired. COMPARISON: [facility], CT, CT ABD PELVIS W CON, 07/13/2016, 21:37. [facility], CR, XR CHEST 2VW, 10/08/2016, 14:29. [facility], CR, XR CHEST 2VW, 10/14/2016, 10:05 . [facility], CR, XR CHEST 1VW (PORTABLE), 11/27/2016, 8:02. FINDINGS: Surgical changes and devices: None. Lungs and pleura: Bilateral small pleural effusions. No pneumothorax. Left basilar opacity may be r elated to a large hiatal hernia. Mediastinum: Mediastinal contours appear normal. Heart size is normal. Bones and chest wall: No suspicious bony lesions. Overlying soft tissues appear unremarkable. IMPRESSION: 1. Left basilar opacity may be related to a large hiatal hernia but superimposed pneumonia cannot be excluded. 2. Small bilateral effusions. Dictated by: Bryant Kirkland M.D. on 03/20/2017 at 15:26 Approved by: Bryant Kirkland M.D. on 03/20/2017 at 15:31
[2017-03-20 15:38] LABS: EOSINOPHILS % (AUTO) 0.7 % (0-5); Mean Corpuscular Volume 80.3 fL (81-100)
[2017-03-20 15:41] LABS: BASOPHILS % (AUTO) 0.1 % (0-3); MONOCYTES % (AUTO) 7.9 % (4-12); Mean Corpuscular Hemoglobin 25.2 pg (27.0-35.0); NEUTROPHILS % (AUTO) 87.8 % (40-74); Platelet Count 170 bil/L (150-400)
--- NOTE | 2017-03-20 15:48 | ED.REPORT ---
HPI-General Illness Date of Service Mar 20, 2017 ED Provider: Jayant Hart MD Erick is an 81-year-old female reporting history of type II diabetes presenting to emergency department with a chief complaint of right leg pain. She reports roughly 1 week history of right leg pain associated with a sore on her paris. She reports this has become quite severe in the last several days, making it difficult to walk. This has been associated with several episodes of nonbloody, nonbilious vomiting today as well as nonbloody diarrhea for several weeks. Also complains of a wet cough that began recently. Pain is been refractory to oxycodone that the patient had at home. Admits to poor cold tolerance. Denies fever, shaking chills, abdominal pain, urinary symptoms. The patient refers often to her when answering history questions, though he appears to be a somewhat difficult historian himself. Reports plans for follow-up March 27 with oncology for anemia and April 09 with cardiology, though they could not recall the indication. Nursing Notes Stated Complaint: RIGHT LEG PAIN Chief Complaint: R leg pain Nursing Notes Reviewed: Yes Allergies: Coded Allergies: No Known Drug Allergies (Verified Allergy, Unknown, 03/20/17) Scheduled Ascorbic Acid (Vitamin C) 250 Mg Tab.chew 250 MG PO DAILY Aspirin (Aspirin) 81 Mg Tablet 81 MG PO DAILY Carvedilol (Carvedilol) 3.125 Mg Tablet 3.125 MG PO BID Ferrous Sulfate (Ferrous Sulfate) 325 Mg Tablet 325 MG PO DAILY Furosemide (Furosemide) 40 Mg Tablet 20-40 MG PO DAILY take 1/2 tab daily/ if wt.gain>2lbs, take 1tab Lisinopril (Lisinopril) 5 Mg Tablet 5 MG PO DAILY Metformin (Metformin) 500 Mg Tablet 500 MG PO BID Vit B Comp/C/FA/Iron/Vit E (Vitamin B Complex Tablet) 1 Each Tablet 1 EACH PO DAILY General Time Seen by MD: 15:17 Chief Complaint Other (R leg pain ) Hx Obtained From: Patient Sudden in Onset?: Yes Onset Occurred: 1 week ago Symptom Duration: Since onset Recent Healthcare: No recent hospitalization, Recent doctor visit Past Medical History Past Medical History Malignant neoplasm of esophagus-remission Atrial fibrillation Reports: Asthma, Diabetes mellitus Reports: Urinary tract infection Past Surgical History Gum surgery Reports: Tonsillectomy Smoking History Never Smoker Social History Alcohol Use: "Social" Drug Use: Denies drug use Other Social History: Good social support, , Local resident Ambulatory Status Independent Review of Systems General: Denies fever, chills, malaise. HEENT: Denies congestion, headache, sore throat. Respiratory: Admits cough. Denies shortness of breath. Cardiovascular: Denies chest pain, palpitations. Gastrointestinal: Admits vomiting, diarrhea, denies abdominal pain. Genitourinary: Denies frequency, urgency, dysuria, hematuria. Otherwise as noted in HPI. Physical Exam General: Well appearing, well developed, well nourished, no acute distress. Head: Atraumatic, normocephalic. Eyes: No scleral icterus or injection. No discharge. Vision grossly intact. ENT: Voice clear, hearing grossly intact. Respiratory: Regular rate and rhythm. No respiratory distress. No increased work of breathing, speaks in complete sentences.Rales in bilateral bases; Cardiovascular: Tachycardic rate and regular rhythm, without murmur, gallop or rub. No pedal edema. Gastrointestinal: Abdomen flat and non-tender without guarding or rebound. Bowel sounds normoactive. Skin: Warm and dry. There is pigment loss that appears to be consistent with vitiligo. Neurological: Grossly nonfocal. Right le second meter by 3 cm area of eschar on the distal anterior paris surrounded by an area of redness and tenderness. Slight serous discharge. Tenderness over the area of redness as well as medial joint line of the knee, anterior tibia, malleoli. Pain with range of motion of right ankle. DP and PT pulses 2+. Psychological: Alert and oriented. Speech appropriate, linear and logical. Behavior appropriate. Vital Signs Vital Signs Date Time Temp Pulse Resp B/P Pulse Ox O2 Delivery O2 Flow Rate FiO2 03/20/17 14:23 37.0 119 24 124/91 98 Room Air Tachycardia, elevated blood pressure Initial VS: Reviewed Interpretation & Diagnostics Lab Results Interpretation Result Diagram: 03/20/17 1520 03/20/17 1520 Test 03/20/17 14:50 03/20/17 14:59 03/20/17 15:20 Lactic Acid Level 2.6mmol/L (0.4-2.0) Hold Purple Top Tube Received (Received) Hold Blue Top Tube Received (Received) Hold Red Top Tube Received (Received) Hold [place] Top Tube Received (Received) Hold [place] Top Tube Received (Received) White Blood Count 12.1th/mm3 (3.8-10.1) Red Blood Count 4.12mil/mm3 (3.90-5.20) Hemoglobin 10.4g/dL (12.0-15.6) Hematocrit 33.1% (35.0-46.0) Mean Corpuscular Volume 80.3fL (81-100) Mean Corpuscular Hemoglobin 25.2pg (27.0-35.0) Mean Corpuscular Hemoglobin Concent 31.4% (32.0-37.0) Red Cell Distribution Width 24.8% (12.3-15.4) Platelet Count 170bil/L (150-400) Neutrophils (%) (Auto) 87.8% (40-74) Lymphocytes (%) (Auto) 3.4% (14-46) Monocytes (%) (Auto) 7.9% (4-12) Eosinophils (%) (Auto) 0.7% (0-5) Basophils (%) (Auto) 0.1% (0-3) Sodium Level 132mEq/L (134-144) Potassium Level 4.8mEq/L (3.5-5.2) Chloride Level 95mEq/L (97-108) Carbon Dioxide Level 19mmol/L (18-29) Blood Urea Nitrogen 17mg/dL (8-27) Creatinine 0.90mg/dL (0.57-1.00) Estimat Glomerular Filtration Rate 86mL/min (>59) Glucose Level 162mg/dL (60-99) Calcium Level 8.6mg/dL (8.5-10.1) Magnesium Level 1.5mg/dL (1.6-2.6) Total Bilirubin 0.9mg/dL (0.0-1.2) Aspartate Amino Transf (AST/SGOT) 21U/L (0-50) Alanine Aminotransferase (ALT/SGPT) 9U/L (0-32) Alkaline Phosphatase 85U/L (25-165) Troponin T 0.034ug/L (0.0-0.011) Total Protein 7.0g/dL (6.4-8.4) Albumin 4.0g/dL (3.4-5.0) ECG Interpretation ECG Interpretation: Rate 110 A-fib Left anterior fascicular block Probable anterolateral infarct, age indeterminate Time: 15:24 Interpreted by: ED physician X-Ray Chest Interpretation Chest Xray Interpretation: PROCEDURE: X-RAY CHEST ONE VIEW, PORTABLE ([id number]) INDICATIONS: infection IMPRESSION: 1. Left basilar opacity may be related to a large hiatal hernia but superimposed pneumonia cannot be excluded. 2. Small bilateral effusions. Re-Eval/Medical Decision Source of Hx: Old records Time of Eval: 16:34 Re-Evaluation/Progress Note: Pt rechecked. Informed pt of need for admission. Pt understands and agrees with plan for admission. All questions addressed. Consultation : Referral / Consult Name: Reji Milner MD Consulted With: Hospitalist Call Returned at: 16:39 Plastic Parts Designer: Will see patient, Agrees with eval, Agrees with plan, Accepts admit Counseled Regarding: Diagnosis, Lab results, Need for admission Discharge & Departure Primary Impression: CAP (community acquired pneumonia) Additional Impression: Cellulitis Site of cellulitis: extremity Site of cellulitis of extremity: lower extremity Laterality: right Qualified Code: L03.115 - Cellulitis of right lower limb Disposition: ADMITTED TO HOSPITAL Discharge Condition All VS Reviewed: Yes Condition: Stable Referrals: Elissa Barrett MD (PCP) Scribe Attestation Portions of this note were transcribed by Eliazar Kwok. I, Dr. Hart personally performed the history, physical exam and medical decision-making; I reviewed and confirmed the accuracy of the information in the transcribed note. Attending Statement I have seen and examined the patient. I have reviewed the chart and agree with the documentation as recorded by the Midlevel Provider, including assessment, treatment plan, and disposition. Findings from my exam are included in documentation above. I assumed care of this patient from Mr. Lynn as the disposition appeared to be hospitalization. I interviewed the patient myself and obtained the history I also examined her myself. I concur with Mr. Lynn's assessment and plan. I spoke to the hospitalist myself the patient will be admitted for pneumonia and cellulitis. copies to: Elissa Barrett MD, Seth PA-C Mar 20, 2017 15:48 Eliazar Kwok Mar 20, 2017 16:35 Jayant aHrt MD Mar 20, 2017 17:05
[2017-03-20] MEDS ORDERED: 0.9% Sodium Chloride 500 ML IV ONE (15:50)
[2017-03-20] MEDS ORDERED: Ondansetron 2 mg/mL 2 mL Inj IVPUSH ONE (15:50)
[2017-03-20 15:53] LABS: TROPONIN T 0.034 ug/L (0.0-0.011)
[2017-03-20 16:04] LABS: Magnesium 1.5 mg/dL (1.6-2.6)
[2017-03-20] MEDS ORDERED: 0.9% Sodium Chloride 1,000 ML IV ONE ×2 (16:31→17:40)
[2017-03-20] MEDS ORDERED: Azithromycin Inj 500 MG in Dextrose 5% 250 ML IV ONE (16:35)
[2017-03-20] MEDS ORDERED: Clindamycin Inj 900 MG in IV Premix 1 EACH IV ONE (16:35)
[2017-03-20] MEDS ORDERED: Meropenem Inj 1,000 MG in 0.9% Sodium Chloride 100 ML IV ONE (16:35)
[2017-03-20] MEDS ORDERED: Magnesium Sulf 2 Gm/50mL Water 2 GM in IV Premix 1 EACH IV ONE (16:40)
--- NOTE | 2017-03-20 16:40 | DRSVH ---
PROCEDURE: X-RAY RIGHT TIBIA/FIBULA, TWO VIEWS ([id number]) INDICATIONS: lower leg pain, wound TECHNIQUE: 2 views of the tibia and fibula were acquired. COMPARISON: None. FINDINGS: Bones: No fractures or dislocations. No suspicious bony lesions. Soft tissues: No suspicious soft tissue calcifications or masses. IMPRESSION: Small vessel calcifications, which may indicate long-standing diabetes. No trauma found, no sign of gas in the soft tissues, no osteomyelitis or foreign body seen. Dictated by: Mark Perales M.D. on 03/20/2017 at 16:38 Approved by: Mark Perales M.D. on 03/20/2017 at 16:38
[2017-03-20] MEDS ORDERED: FERR-83 PO (16:52)
[2017-03-20] MEDS ORDERED: LISI-571 PO (16:52)
--- NOTE | 2017-03-20 17:21 | NUR ---
[facility] Medications reconcilled as per PCP list dated 03/06/2017. Unfortunately pt is unable to recall if she has taken her medications today, and unable to confirm names/dosing of her everyday medications, stating that her is her "nurse". The is not present and pt insists not to call him at this time (to confirm medications and LD/times), stating that he left for home not to long ago to take a nap. She would not want us to wake him up. Please follow up and verify LD/time taken when comes back to visit the pt. Thank you.
[2017-03-20] MEDS: 0.9% Sodium Chloride 1,000 ML IV SCH (17:40)
[2017-03-20] MEDS ORDERED: Ondansetron 2 mg/mL 2 mL Inj IVPUSH PRN (17:45)
[2017-03-20] MEDS ORDERED: Polyethylene Glycol (PEG) 17 Gm Powder PO PRN (17:45)
[2017-03-20] MEDS ORDERED: Alum-Mag Hydrox-Simeth 30 mL Suspension PO PRN (17:45)
--- NOTE | 2017-03-20 18:39 | NUR ---
Admit: Arrived to [facility] @ approx 1800 via stretcher. Transferred from stretcher to bed. Alert & oriented. Rt lower extremity red w/approx quarter size lesion, no drainage. States rt lower extremity pain tolerable at 6/10. IVFs and antibiotics infusing. Bed in low and locked position, bed rails up x2, call light within reach. VSS. Telemetry #46 on, Afib 96 per facilities technician.
[2017-03-20] MEDS ORDERED: Vancomycin Inj 750 MG in 0.9% Sodium Chloride 250 ML IV ONE (19:00)
[2017-03-20] MEDS: Vancomycin Dose per Pharmacist XX SCH (19:30)
[2017-03-20 19:36] LABS: Magnesium 2.6 mg/dL (1.6-2.6); Phosphorus 2.8 mg/dL (2.5-4.9)
[2017-03-20] MEDS ORDERED: Glucose 40% Oral Gel 15 Gm Tube PO PRN (20:15)
--- NOTE | 2017-03-20 20:16 | PCM.HPMED ---
Subjective Date of Service Mar 20, 2017 Primary Provider: Admitting Physician: Reji Milner MD Primary Care Physician: Elissa Barrett MD Attending Physician: Reji Milner MD Admit Status: From the Emergency Department, Full Admit Chief Complaint: Generalized weakness/3 days Watery diarrhea/3 day Worsening right leg pain/one day History of Present Illness: 81-year-old lady with past medical history of diabetes, anemia, history of esophageal cancer presented with generalized weakness of 3 days, and worsening right leg pain of 3 d and diarrhea of one day. describes that the patient has been having generalized weakness and worsening right leg pain for 3 days unable to walk to bath room and has to use bedside commode for the last 3 days. right leg pain progressively worsened and patient unable to stand up and shouts when touched gently which prompted ED visit. She also had frequent watery diarrhea today with an episode of vomiting. Patient had on and off dysphagia for the last few months.EGD 12/04/16 unremarkable. referred to oncology for ongoing anemia and has an appointment on March 27. She has dry cough for the last few days. Denies fever. She also has some dyspnea. Denies abdominal pain. ED course: Initial HR 119, afebrile. WBC 12.1, hemoglobin 10.4, lactate 2.6,Na 132, magnesium 1.5 Blood cultures sent. Meropenem, clindamycin and azithromycin given for suspected cellulitis and pneumonia. Review of Systems: Comprehensive review of systems performed, pertinent positives and negatives included in history of present illness Allergies Coded Allergies: No Known Drug Allergies (Verified Allergy, Unknown, 03/20/17) Home Medications Ascorbic Acid (Vitamin C) 250 Mg Tab.chew 250 MG PO DAILY Aspirin (Aspirin) 81 Mg Tablet 81 MG PO DAILY Carvedilol (Carvedilol) 3.125 Mg Tablet 3.125 MG PO BID Ferrous Sulfate (Ferrous Sulfate) 325 Mg Tablet 325 MG PO DAILY Furosemide (Furosemide) 40 Mg Tablet 20-40 MG PO DAILY take 1/2 tab daily/ if wt.gain>2lbs, take 1tab Lisinopril (Lisinopril) 5 Mg Tablet 5 MG PO DAILY Metformin (Metformin) 500 Mg Tablet 500 MG PO BID Vit B Comp/C/FA/Iron/Vit E (Vitamin B Complex Tablet) 1 Each Tablet 1 EACH PO DAILY PMH Malignant neoplasm of esophagus-remission History of Atrial fibrillation History of Asthma, Diabetes mellitus History of frequent Urinary tract infection Surgical History Resection of esophageal cancer Family History . reviewed and unremarkable. she says she lives ' [place] the [place] from [facility]' with her Social History Hx Alcohol Use: Yes Hx Substance Use: No Hx Tobacco Use: No Smoking Status: Never Smoker Exam Vital Signs Vital Sign - Last Date Time Temp Pulse Resp B/P Pulse Ox O2 Delivery O2 Flow Rate FiO2 03/20/17 20:10 36.4 80 18 99/62 94 Nasal Cannula 2.00 Exam Gen. patient is lying comfortably in hospital bed HEENT: Head is normocephalic atraumatic, Pupils equal and reactive, extraocular movements intact, Lungs bilateral basal rhonchi Heart tachycardic Abdomen soft nontender without hepatosplenomegaly Extremities pulses are present dorsalis pedis posterior tibialis and radial. Right paris 3x2 cm paris ulcer. Surrounding area erythematous and hot to touch. site is disproportionately very tender Skin is warm and dry there are no rashes, vitiligo Psych alert and oriented to person place and time Neuro cranial nerves II through XII are grossly intact Lymph: There is no lymphadenopathy appreciated in the cervical supra infraclavicular regions : no chu Lab and Diagnostics Result Diagram: 03/20/17 1520 03/20/17 1900 X-Rays, CTs and MRIs PROCEDURE: X-RAY CHEST ONE VIEW, PORTABLE ([id number]) INDICATIONS: infection IMPRESSION: 1. Left basilar opacity may be related to a large hiatal hernia but superimposed pneumonia cannot be excluded. 2. Small bilateral effusions. Dictated by: Bryant Kirkland M.D. on 03/20/2017 at 15:26 Additional Diagnostics: ANGIOGRAPHY: 01/11/17 1. Left main: No significant disease. 2. LAD is a tortuous vessel in its mid segment. It has a long tubular stenosis of about 40% to 60%. 3. Circumflex is nondominant. It has an eccentric, very focal discrete lesion of about 60% in its mid segment past the take-off of the first obtuse marginal branch. 4. The ramus intermedius is a moderate-caliber vessel and has a 50% lesion in its proximal part. 5. The right coronary artery is a dominant vessel. It is subtotally occluded past the takeoff of a large RV branch. The distal vessel is seen faintly via [id number] collaterals and it is also seen via [id number] collaterals. 6. LV-gram revealed LVEF of around 45%. 7. There is 2+ MR. MR was worse with post PVC beats. There is inferobasal akinesis. 8. FFR of the circumflex was 0.98, thereby indicating it is not hemodynamically significant. We attempted to do an FFR in the LAD, but because of the marked tortuosity of the vessel, we could not deliver a wire into the apical LAD. We tried using a balloon to redirect this wire; however, were unsuccessful. Given the fact that the LAD is tortuous and it is about a 2-2.5 mm vessel at that point, I decided to treat her medically and not persist with wiring. 9. In summary, this lady has moderate mitral regurgitation. She has mild to moderate pulmonary hypertension. Her LV function is mildly impaired. She has modest coronary artery disease in the left system. Her right coronary is totally occluded distally but this supplies an area that has already been infarcted. I think, her overall medical condition and advanced age, medical therapy would be appropriate. Yemi Brownlee MD 01/11/17 1011 <Electronically signed by Yemi Brownlee MD> 01/14/17 0817 Assessment & Plan 81-year-old lady with past medical history of diabetes, anemia, history of esophageal cancer presented with generalized weakness of 3 days, and worsening right leg pain of 3 d and diarrhea of one day. #Sepsis due to cellulitis/infected arterial ulcer vs GI vs pneumonia -Initially checked 119,BP in 90's,LA 2.6.wbc 12.1 -Source likely infected arterial ulcer with surrounding cellulitis vs pneumonia, GI sxs likley viral , -NS bolus and then 150ml/h -Received meropenem, clindamycin and azithromycin in ED. will continue Zosyn and vancomycin -Stool for C. difficile requested. No much leukocytosis. No recent antibiotic exposure. Hold off empiric C. difficile treatment -Blood culture pending, lactate trended down -KARI outpatient once cellulitis improved # Anemia -Heme/onc appointment on March 27 # Diabetes -Sliding-scale, hold metformin #History of esophageal cancer -Recent EGD unremarkable # h/o Afib -now in SR, continue carvedilol # CAD s/p recent angiogram without intervention -Continue home meds, aspirin and BB # suspected PAD and arterial ulcer -c/w ASA,may add statin for PAD and CAD tomorrow ppx -scd on left leg full code Patient admitted under inpatient status with expected length of stay > 2 midnights for severity of present symptoms, complexities of treatment plan and risk for adverse events Resuscitation Status: CPR: Attempt Resuscitation copies to: Elissa Barrett MD, Melaku MD Mar 20, 2017 20:16
[2017-03-20] MEDS ORDERED: Albuterol-Ipratropium 3 mL Inhalation Solution NEB PRN (20:20)
[2017-03-20 20:24] LABS: APPEARANCE,URINE TURBID (CLEAR,HAZY); COLOR,URINE YELLOW (YELLOW); OCCULT BLOOD,URINE MODERATE (NEGATIVE); PH,URINE 5.5 (5.0-8.0); UROBILINOGEN,URINE NORMAL (NORMAL)
--- NOTE | 2017-03-20 20:57 | PCM.PHAPRO ---
Progress Date of Service: Mar 20, 2017 Generalized weakness/3 days Watery diarrhea/3 day Worsening right leg pain/one day Vancomycin management per pharmacy Indication: sepsis due to cellulitis/infected arterial ulcer vs pneumonia Goal vancomycin trough: 15-20 Pertinent info: - Weight: 46.0 kg - SCr 0.90 (est CrCl 36 mL/min -- further reduced due to age). Loading dose vancomycin 750 mg IV once has been ordered (~16 mg/kg). Ordered maintenance vancomycin 500 mg IV Q24hrs. Pharmacokinetic modeling estimates trough of ~15.However, due to multiple patient factors (elderly, low BMI, reduced renal function), pharmacokinetic modeling is likely inaccurate. Will draw trough early (prior to 3rd dose). Trough has been ordered for 03/22 at 1930. Pharmacy to continue to monitor and dose vancomycin. Thank you, Babar Madrid Pharmacist Babar Madrid Mar 20, 2017 20:57
[2017-03-20] MEDS: Insulin LISPRO 300 Unit/3 mL Inj SUBQ SCH (22:00)
[2017-03-20] MEDS: Piper-Tazo 3.375 Gm/50 mL D5W Minibag Plus - Q8H over 4 hrs IV ONE ×2 (22:15)
[2017-03-20] MEDS ORDERED: Piper-Tazo 3.375 Gm/50 mL D5W Minibag Plus - Q8H over 4 hrs IV ONE ×2 (22:30)
[2017-03-21] VITALS (11 sets, daily range): BP systolic 87–113; BP diastolic 53–66; PULSE 59–92; RESP 16–20; O2SAT 91–99
[2017-03-21] MEDS: Piper-Tazo 3.375 Gm/50 mL D5W Minibag Plus - Q8H over 4 hrs IV ONE ×2 (00:12)
[2017-03-21] MEDS: 0.9% Sodium Chloride 1,000 ML IV SCH ×5 (00:59→18:13)
[2017-03-21] MEDS: Piperacillin-Tazo 3.375 Gm Inj 3.375 GM in Dextrose 5% Minibag Plus 50 ML IV SCH ×3 (02:39→18:13)
--- NOTE | 2017-03-21 05:48 | NUR ---
Pain/mentation/tele Pt c/o RT leg pain 02/28. Oxycodone 5mg given and the patient appeared to be asleep upon reassessment. Pt was alert and oriented x 3 upon arrival, but later on around 0300 she became forgetful. Pt repeatedly asked the same questions and she gave the exact same answers in return. Tele: AFIB hr 80s per surveillance system monitor. Care continues.
[2017-03-21 06:11] LABS: BASOPHILS % (AUTO) 0.2 % (0-3); EOSINOPHILS % (AUTO) 0.4 % (0-5); MONOCYTES % (AUTO) 9.3 % (4-12); Mean Corpuscular Hemoglobin 24.8 pg (27.0-35.0); Mean Corpuscular Volume 81.5 fL (81-100); NEUTROPHILS % (AUTO) 84.3 % (40-74); Platelet Count 149 bil/L (150-400)
[2017-03-21] MEDS: Insulin LISPRO 300 Unit/3 mL Inj SUBQ SCH ×4 (07:48→22:00)
[2017-03-21] MEDS: Vancomycin Dose per Pharmacist XX SCH (08:05)
--- NOTE | 2017-03-21 10:23 | DRSVH ---
PROCEDURE: US VENOUS LEG DUPLEX BILATERAL INDICATIONS: pain TECHNIQUE: Real-time imaging, as well as color and pulse Doppler interrogation, were performed of the deep veins of both legs from the inguinal ligament to the popliteal fossa. COMPARISON: None. FINDINGS: The deep veins are normally compressible, and free of intraluminal thrombus. Color and pu lse Doppler demonstrate normal phasic intravascular flow. There is normal augmentation response to d istal compression maneuver. Morphologically normal. Prominent right groin lymph nodes. Right calf edema. IMPRESSION: No deep venous thrombosis identified within either the left or right lower extremities. Lymph nodes present within the right groin largest measuring up to 7 mm in maximal AP diameter. Uday mmend clinical correlation and management. Dictated by: Ricky POLANCO Interpreted: Deshawn Barber MD on 03/21/2017 at 10:12 Approved by: Deshawn Barber M.D. on 03/21/2017 at 10:21
--- NOTE | 2017-03-21 11:29 | NUR ---
R leg pain pt reports leg pain 6/10, but refuses pain medication in order to be able to "accurately tell the doctor about the pain".
--- NOTE | 2017-03-21 11:41 | NUR ---
off floor pt transported in bed to CT.
--- NOTE | 2017-03-21 12:06 | PCM.PNMED ---
Subjective Date of Service Mar 21, 2017 Subjective Afebrile now. Tachycardia resolved. Blood culture 3/4 growing Gram-negative rods. Urinalysis with pyuria. Continues to have right leg pain Exam Vital Signs Vital Sign - Last Date Time Temp Pulse Resp B/P Pulse Ox O2 Delivery O2 Flow Rate FiO2 03/21/17 09:41 36.4 77 18 99/53 97 Nasal Cannula 2.00 Intake and Output 03/20/17 03/20/17 03/21/17 Cumulative From/Thru 15:00 23:00 07:00 03/20/17 14:23 - 03/21/17 06:34 Intake Total 1800 ml 3019 ml 4819 ml Output Total 450 ml 450 ml Balance 1800 ml 2569 ml 4369 ml Intake Oral 350 ml 350 ml IV Total 1800 ml 2669 ml 4469 ml Output Urine Total 450 ml 450 ml Exam Gen. patient is lying comfortably in hospital bed HEENT: Head is normocephalic atraumatic, Pupils equal and reactive, extraocular movements intact, Lungs bilateral basal rhonchi Heart tachycardic Abdomen soft nontender without hepatosplenomegaly Extremities pulses are present dorsalis pedis posterior tibialis and radial. Right paris 3x2 cm paris ulcer. Surrounding area erythematous and hot to touch. site is disproportionately very tender Skin is warm and dry there are no rashes, vitiligo Psych alert and oriented to person place and time Neuro cranial nerves II through XII are grossly intact Lymph: There is no lymphadenopathy appreciated in the cervical supra infraclavicular regions : no chu IVs and Medications Medications Reviewed: Medications were reviewed in detail Lab and Diagnostics Result Diagram: 03/21/1736 03/21/17 0536 X-Rays, CTs and MRIs PROCEDURE: X-RAY CHEST ONE VIEW, PORTABLE ([id number]) INDICATIONS: infection IMPRESSION: 1. Left basilar opacity may be related to a large hiatal hernia but superimposed pneumonia cannot be excluded. 2. Small bilateral effusions. Dictated by: Bryant Kirkland M.D. on 03/20/2017 at 15:26 PROCEDURE: US VENOUS LEG DUPLEX BILATERAL INDICATIONS: pain IMPRESSION: No deep venous thrombosis identified within either the left or right lower extremities. Lymph nodes present within the right groin largest measuring up to 7 mm in maximal AP diameter. Recommend clinical correlation and management. Dictated by: Ricky POLANCO Interpreted: Deshawn Barber MD on 03/21/2017 at 10: 12 Additional Diagnostics ANGIOGRAPHY: 01/11/17 1. Left main: No significant disease. 2. LAD is a tortuous vessel in its mid segment. It has a long tubular stenosis of about 40% to 60%. 3. Circumflex is nondominant. It has an eccentric, very focal discrete lesion of about 60% in its mid segment past the take-off of the first obtuse marginal branch. 4. The ramus intermedius is a moderate-caliber vessel and has a 50% lesion in its proximal part. 5. The right coronary artery is a dominant vessel. It is subtotally occluded past the takeoff of a large RV branch. The distal vessel is seen faintly via [id number] collaterals and it is also seen via [id number] collaterals. 6. LV-gram revealed LVEF of around 45%. 7. There is 2+ MR. MR was worse with post PVC beats. There is inferobasal akinesis. 8. FFR of the circumflex was 0.98, thereby indicating it is not hemodynamically significant. We attempted to do an FFR in the LAD, but because of the marked tortuosity of the vessel, we could not deliver a wire into the apical LAD. We tried using a balloon to redirect this wire; however, were unsuccessful. Given the fact that the LAD is tortuous and it is about a 2-2.5 mm vessel at that point, I decided to treat her medically and not persist with wiring. 9. In summary, this lady has moderate mitral regurgitation. She has mild to moderate pulmonary hypertension. Her LV function is mildly impaired. She has modest coronary artery disease in the left system. Her right coronary is totally occluded distally but this supplies an area that has already been infarcted. I think, her overall medical condition and advanced age, medical therapy would be appropriate. Yemi Brownlee MD 01/11/17 1011 <Electronically signed by Yemi Brownlee MD> 01/14/17 1838 Assessment & Plan 81-year-old lady with past medical history of diabetes, anemia, history of esophageal cancer presented with generalized weakness of 3 days, and worsening right leg pain of 3 d and diarrhea of one day. #Sepsis/gram negative bacteremia,acute,poa - due to UTI most likely . cellulitis/infected arterial ulcer also contributing -initial HR 119,BP in 90's,LA 2.6.wbc 12.1 -Source likely UTI.infected arterial ulcer with surrounding cellulitis contributing.,GI sxs of diarrhea likley viral which is now resolved , -NS bolus and then 150ml/h -Received meropenem, clindamycin and azithromycin in ED. switched to Zosyn and vancomycin 03/20. Main source of sepsis/infection seems to be UTI. Discontinue vancomycin. Continue Zosyn. Consulted ID -Stool for C. difficile requested. No much leukocytosis. No recent antibiotic exposure. Hold off empiric C. difficile treatment -Blood culture / growing GNRs,UA with pyuria but UCX mixed howard , lactate trended down -KARI for PVD workup outpatient once cellulitis improved # UTI ,acute ,poa -antibiotics as above -CT KUB requested # Watery diarrhea, resolved -probably viral # Anemia -Heme/onc appointment on March 27 # Diabetes -Sliding-scale, hold metformin #History of esophageal cancer -Recent EGD unremarkable # h/o Afib -now in SR, continue carvedilol # CAD s/p recent angiogram without intervention -Continue home meds, aspirin and BB # suspected PAD and arterial ulcer -c/w ASA,may add statin for PAD and CAD tomorrow -LE venous duplex negative for DVT. Inguinal lymph nodes seen # small pleural effusions,chronic ,seen on prior CXRs -unclear etiology # hyponatremia, improving -due to hypovolumia -c/w NS at 150ml/h # Initially suspected pneumonia, ruled out -Pneumonia clinically likely. ppx -scd on left leg full code Patient admitted under inpatient status with expected length of stay > 2 midnights for severity of present symptoms, complexities of treatment plan and risk for adverse events disposition:. Pending blood culture sensitivity VTE Mechanical Devices: Venous Foot Pump Resuscitation Status: CPR: Attempt Resuscitation Reji Milner MD Mar 21, 2017 12:06
--- NOTE | 2017-03-21 12:41 | DRSVH ---
PROCEDURE: CT KUB ([id number]) INDICATIONS: urosepsis TECHNIQUE: Noncontrast 5 mm thick sections acquired from the diaphragms to the symphysis. 5 mm thick coronal an d sagittal reformats were then performed. For radiation dose reduction, the following was used: aut omated exposure control, adjustment of mA and/or kV according to patient size. COMPARISON: None. FINDINGS: Image quality: Excellent. Lung bases: Lung bases are clear. Heart size is normal. There is a large hiatal hernia. There are bilateral pleural effusions probably moderate in size. Urinary system: Both kidneys are normal in size. There are thought to be small central nonobstructin g calcifications bilaterally. Vascular calcifications are present as well. No hydronephrosis . Both u reters appear non-dilated throughout their expected courses. Bladder wall thickness is increased fro m normal but the bladder is fully distended.; no calcified bladder stones. Other solid organs: Ascites is present. Liver and spleen are normal in size. Scattered small calcifi cations indicate small granulomata. Gallbladder appears contracted.. Pancreas is normal in contours. No adrenal nodules. Peritoneum and bowel: Unenhanced bowel loops demonstrate normal caliber. No free air Nodes and vessels: No retroperitoneal or mesenteric adenopathy by size criteria. Aorta and inferior vena cava are normal in caliber. Abdominal wall: No ventral hernias. There is increased density of the subcutaneous fat suggesting s ome edema or fluid. Pelvis: There is moderate pelvic fluid. No inguinal hernias or adenopathy. Uterus appears prominent in size. Fibroids cannot be excluded. Pelvic ultrasound to examine the uterus and ovaries would be u seful in this patient. Bones: No suspicious bony lesions. 3 cannulated screws are seen in the proximal left femur No verteb ral body compression fractures. IMPRESSION: 1. Moderate amount of ascites including bilateral pleural effusions and also some increased density o f subcutaneous fat suggesting third spacing of fluid. 2. Prominent appearing uterus. Ovaries cannot be well defined. Suggest pelvic ultrasound to evaluate for abnormality of the structures. 3. No adenopathy or metastatic lesions are identified. No specific mass is seen. 4. Large hiatal hernia seen on previous studies. Old granulomatous disease. 5. Small nonobstructing calcification seen in each kidney vascular calcifications. Dictated by: Yariel Alvarez M.D. on 03/21/2017 at 11:56 Approved by: Yariel Alvarez M.D. on 03/21/2017 at 12:40
--- NOTE | 2017-03-21 14:30 | CONS ---
[address] [address] CONSULTATION REPORT PATIENT: KRISTIN LOPEZ : 1935 MR#: [id number] ADMIT: 03/20/2017 JOB ID: [id number] INFECTIOUS DISEASE CONSULTATION: DATE OF SERVICE: 03/21/2017 REQUESTING PHYSICIAN: Reji Milner MD I thank, Dr. Milner for this timely consult. REASON FOR CONSULTATION: Gram-negative bacteremia. 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 She presented to the hospital with a multi-day history of progressive weakness and pain in her right leg below the knee. She is a very vague and somewhat difficult historian but she refuses to answer certain questions and seems unable to attach any duration to any of her symptoms, but it sounds as if for days or perhaps weeks, she has had pain in both legs below the knees but especially on the right side. She denies any associated fevers, chills, or sweats, though she did mention to the other examiners that she may have had some chills. In any event, she presented here because of increasing generalized weakness and pain in the right leg for three days. It was felt initially that she might have a very severe soft tissue infection and she was started on very broad coverage including vancomycin, meropenem, and clindamycin, though that subsequently has been narrowed. In addition to her initial complaints of the right lower extremity, she reported loose watery bowel movements, though today she denies that to me. It is also noted in the chart that she may have had an episode of vomiting which she again states she has not had and she specifically denies nausea, vomiting, anorexia or diarrhea at any point in recent days. She states she has a rare cough but no significant shortness of breath. No pleuritic chest pain. No abdominal pain. No urgency, frequency, or dysuria at any time. In the emergency department, it was noted that she was somewhat anemic, tachycardic and had a lactic acidosis. Because of concerns about sepsis, she was started on very broad-spectrum antibiotics on the when she was admitted. Early this morning, it was discovered that her blood cultures were actually growing gram-negative rods and it was also noted that she had pyuria on the urinalysis which led to increasing concerns about the possibility of a complicated urinary tract infection, so antibiotics were changed to Zosyn at this point. ID consultation is requested regarding antibiotic management. PAST MEDICAL HISTORY: 1. Diabetes mellitus. 2. Esophageal cancer in remission. 3. Organic heart disease. a. AFib. b. Coronary artery disease. 4. Anemia. 5. History of recurrent UTIs. SOCIAL HISTORY: The patient is from [place], though she refused to say what country. She immig[place] to the [place] 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 She neither smokes nor drinks. She and her traveled widely but mainly in [place] at this point, and they are bit fans of opera. FAMILY HISTORY: Negative for TB in first and second-degree relatives. REVIEW OF SYSTEMS: At this point, the patient basically denies symptoms and she says she has no headache, no visual complaints. No sore throat. No trouble swallowing. No significant cough, shortness of breath or chest pain. No abdominal pain. No nausea, vomiting, diarrhea, or dysuria. No frequency. She does note she has pain in the right lower extremity below the knee of unknown duration and unknown severity. The remainder of the review of systems was negative or she refused to answer. PHYSICAL EXAMINATION: Reveals an elderly, appearing woman with a temperature 36.4. She has been afebrile since her admission now a little over a day ago. Pulse 77, respiratory rate 18, blood pressure 99/53. She is saturating well on 2 L. Does not appear to be in any distress. She has fairly impressive vitiligo which encompasses most of the body. Her mental status seems to be clear, though she refuses to attach any durations to her symptoms and declines to answer questions for no apparent reason, but she is clearly oriented and able to relate very accurate stories about happenings here in [facility]. Her head is without trauma. There is no temporal wasting. Sinuses nontender. Eyes without conjunctivitis. Oral cavity: No thrush or hairy leukoplakia. The neck is supple. No JVD. No adenopathy. Lungs relatively clear. Cardiac tones irregular rate and rhythm without notable murmur. Abdomen soft and nontender without organomegaly or ascites. No suprapubic fullness. She does not have a Melvin catheter. She does not have any evidence of synovitis. She is neurologically intact. She has bilateral venous stasis changes both legs below the knees, but the right leg has a small abrasion over the lower paris and surrounding area of circumferential warm tender cellulitis superimposed on the venous stasis changes. LABORATORY DATA: Include a white count 12,000, measured on two occasions both with left shift. Creatinine is 0.92. LFTs are normal. Albumin 3.3. Urinalysis with greater than 50 white cells, and the urine culture is growing mixed howard. Blood cultures are growing gram-negative rods. Interestingly the BioFire PCR is unable to determine what these are, which would exclude many common gram-negative organisms. IMAGING: I reviewed the patient's chest x-ray, which showed a left basilar opacity. The radiologist believes this may be a hernia. Additionally an x-ray of her leg shows no notable abnormalities; that is an x-ray of the right tibia. Doppler ultrasound of the right leg negative for DVT. CT scan of the abdomen shows moderate ascites with bilateral pleural effusions. No other notable abnormalities are seen except a large hiatal hernia. IMPRESSION: This is a bit of an odd case of a woman who was brought in by her because of three days of weakness, gastrointestinal complaints and right leg tenderness. The patient did not appear terribly toxic on admission even though her white count was somewhat elevated with a left shift and multiple blood cultures almost immediately are growing gram-negative rods. These gram-negative rods are not typable using our BioFire PCR system which looks for a variety of gram negatives including an Enterobacteriaceae general probe for all enteric gram-negative rods, and more specific probes for enterobacter, E. coli, Klebsiella, Proteus, Serratia, H flu, Neisseria and Pseudomonas. This brings up the possibility that this bacteremia is from some totally different probably nonfermenting type gram-negative lona which could not be recognized by the BioFire. A secondary question here is where is this unusual gram-negative lona arising from. The patient has some cellulitis of the right lower extremity but it is not dramatically bad, and it would be quite odd to have bacteremic gram-negative cellulitis though it is of course possible. Initially in the emergency department, she complained of gastrointestinal symptoms which she now adamantly denies, and it does not seem that she has any current abdominal symptoms, so I would not suspect that is the cause. Also possible, of course, would be urinary tract infection as she does have pyuria, but her urine is growing a mixture of organisms and not a single predominant organism. At this point, my conclusion is she is probably bacteremic from her right lower extremity, though the possibility of a complicated bacteremic urinary tract infection cannot be ruled out. The nature of this gram-negative lona remains completely unclear. RECOMMENDATIONS: 1. We await the identification of the organism tomorrow. 2. We can discontinue most current antibiotics including azithromycin, clindamycin and meropenem. 3. I would continue with Zosyn for now as it covers the vast majority of both aerobic and anaerobic gram-negative rods and the patient is not currently toxic. 4. Additional imaging may be indicated once we have identified this organism. Thank you very much for this interesting consult.
--- NOTE | 2017-03-21 16:24 | NUR ---
Social Work: Brief Note SW visited patient's room in an attempt to complete initial assessment for discharge planning. SW visited patient's room and explained role. Patient was in agreement with answering questions. After SW began speaking to patient, patient began speaking in another language. SW informed patient that she did not understand what she was saying. Patient continued to speak in different language. SW excused herself and informed patient that she would return with an tonsorial artist. Patient began speaking again but this time in Peruvian and informed SW that she did not need a cook station present. Patient stated that she does not participate in long conversations and did not want any further questions ask. SW thanked patient for her time. SW met with primary nurse and explained the situation that took place. RN informed SW that patient is alert and oriented and has been speaking only Peruvian with other staff. SW attempted to contact patient's Yariel Sow but was unable to reach him by phone. WANDY will reattempt initial assessment at a later time. ANTONY Frost
--- NOTE | 2017-03-21 17:34 | NUR ---
agitated pt got angry at the SUPERVISING EDITOR TRAILER for waking her to check vitals, pt is becoming more agitated with staff when care is being offered. pt asks to "just be left alone for awhile". This RN told patient that we will attempt to let her rest as much as possible but we will need to come in to check on her now and then. pt agrees with plan to allow her to rest with less interruptions, visiting now.
[2017-03-21] MEDS ORDERED: Vancomycin Inj 500 MG in 0.9% Sodium Chloride 100 ML IV SCH (19:30)
[2017-03-22] VITALS (8 sets, daily range): BP systolic 103–140; BP diastolic 59–90; PULSE 66–107; RESP 18–20; O2SAT 94–98
[2017-03-22] MEDS: Piperacillin-Tazo 3.375 Gm Inj 3.375 GM in Dextrose 5% Minibag Plus 50 ML IV SCH ×3 (03:33→17:45)
[2017-03-22] MEDS: Insulin LISPRO 300 Unit/3 mL Inj SUBQ SCH ×4 (07:38→22:00)
[2017-03-22 08:51] LABS: BASOPHILS % (AUTO) 0.4 % (0-3); EOSINOPHILS % (AUTO) 1.7 % (0-5); MONOCYTES % (AUTO) 7.9 % (4-12); Mean Corpuscular Hemoglobin 25.5 pg (27.0-35.0); NEUTROPHILS % (AUTO) 82.2 % (40-74); Platelet Count 144 bil/L (150-400)
--- NOTE | 2017-03-22 10:49 | PCM.PNMED ---
Subjective Date of Service Mar 22, 2017 Subjective Generalized weakness improving. Patient states she wants to go home today if possible. Exam Vital Signs Vital Sign - Last Date Time Temp Pulse Resp B/P Pulse Ox O2 Delivery O2 Flow Rate FiO2 03/22/17 07:55 88 20 98 Room Air 03/22/17 05:25 36.7 113/73 03/21/17 16:55 2.00 Intake and Output 03/21/17 03/21/17 03/22/17 Cumulative From/Thru 15:00 23:00 07:00 03/20/17 14:23 - 03/22/17 06:38 Intake Total 1698 ml 1193 ml 7710 ml Output Total 300 ml 150 ml 900 ml Balance 1398 ml 1043 ml 6810 ml Intake Oral 472 ml 100 ml 922 ml IV Total 1226 ml 1093 ml 6788 ml Output Urine Total 300 ml 150 ml 900 ml # Bowel Movements 0 0 0 Exam Gen. patient is lying comfortably in hospital bed HEENT: Head is normocephalic atraumatic, Pupils equal and reactive, extraocular movements intact, Lungs bilateral basal rhonchi Heart tachycardic Abdomen soft nontender without hepatosplenomegaly Extremities pulses are present dorsalis pedis posterior tibialis and radial. Right paris 3x2 cm paris ulcer. Surrounding area erythematous and hot to touch. site is disproportionately very tender Skin is warm and dry there are no rashes, vitiligo Psych alert and oriented to person place and time Neuro cranial nerves II through XII are grossly intact Lymph: There is no lymphadenopathy appreciated in the cervical supra infraclavicular regions : no chu IVs and Medications Medications Reviewed: Medications were reviewed in detail Lab and Diagnostics Result Diagram: 03/22/1782403/22/17824 X-Rays, CTs and MRIs PROCEDURE: X-RAY CHEST ONE VIEW, PORTABLE ([id number]) INDICATIONS: infection IMPRESSION: 1. Left basilar opacity may be related to a large hiatal hernia but superimposed pneumonia cannot be excluded. 2. Small bilateral effusions. Dictated by: Bryant Kirkland M.D. on 03/20/2017 at 15:26 PROCEDURE: US VENOUS LEG DUPLEX BILATERAL INDICATIONS: pain IMPRESSION: No deep venous thrombosis identified within either the left or right lower extremities. Lymph nodes present within the right groin largest measuring up to 7 mm in maximal AP diameter. Recommend clinical correlation and management. Dictated by: Ricky Snyder RRA Interpreted: Deshawn Barber MD on 03/21/2017 at 10: 12 PROCEDURE: CT KUB ([id number]) INDICATIONS: urosepsis IMPRESSION: 1. Moderate amount of ascites including bilateral pleural effusions and also some increased density of subcutaneous fat suggesting third spacing of fluid. 2. Prominent appearing uterus. Ovaries cannot be well defined. Suggest pelvic ultrasound to evaluate for abnormality of the structures. 3. No adenopathy or metastatic lesions are identified. No specific mass is seen. 4. Large hiatal hernia seen on previous studies. Old granulomatous disease. 5. Small nonobstructing calcification seen in each kidney vascular calcifications. Dictated by: Yariel Alvarez M.D. on 03/21/2017 at 11:56 Cardiac Echo Impressions ECHO 12/13/16 Interpretation Summary Left ventricular ejection fraction is estimated to be 50 +/- 5%. There is basal inferior wall akinesis. There is mid inferior wall severe hypokinesis. There is moderate to severe mitral regurgitation. Compared to the prior echo study, there has been an increase in the severity of mitral regurgitation. There is mild aortic valve sclerosis. There is mild aortic regurgitation. The right ventricular systolic pressure is estimated at 64 mmHg assuming a right atrial pressure of 15 mm Hg. Compared to the prior echo exam, there has been an increase in TR severity. There is moderate tricuspid regurgitation. Additional Diagnostics ANGIOGRAPHY: 01/11/17 1. Left main: No significant disease. 2. LAD is a tortuous vessel in its mid segment. It has a long tubular stenosis of about 40% to 60%. 3. Circumflex is nondominant. It has an eccentric, very focal discrete lesion of about 60% in its mid segment past the take-off of the first obtuse marginal branch. 4. The ramus intermedius is a moderate-caliber vessel and has a 50% lesion in its proximal part. 5. The right coronary artery is a dominant vessel. It is subtotally occluded past the takeoff of a large RV branch. The distal vessel is seen faintly via [id number] collaterals and it is also seen via [id number] collaterals. 6. LV-gram revealed LVEF of around 45%. 7. There is 2+ MR. MR was worse with post PVC beats. There is inferobasal akinesis. 8. FFR of the circumflex was 0.98, thereby indicating it is not hemodynamically significant. We attempted to do an FFR in the LAD, but because of the marked tortuosity of the vessel, we could not deliver a wire into the apical LAD. We tried using a balloon to redirect this wire; however, were unsuccessful. Given the fact that the LAD is tortuous and it is about a 2-2.5 mm vessel at that point, I decided to treat her medically and not persist with wiring. 9. In summary, this lady has moderate mitral regurgitation. She has mild to moderate pulmonary hypertension. Her LV function is mildly impaired. She has modest coronary artery disease in the left system. Her right coronary is totally occluded distally but this supplies an area that has already been infarcted. I think, her overall medical condition and advanced age, medical therapy would be appropriate. Yemi Brownlee MD 01/11/17 1011 <Electronically signed by Yemi Brownlee MD> 01/14/17 0803 Assessment & Plan 81-year-old lady with past medical history of diabetes, anemia, history of esophageal cancer presented with generalized weakness of 3 days, and worsening right leg pain of 3 d and diarrhea of one day. #Sepsis/gram negative bacteremia,acute,poa - due to UTI most likely . cellulitis/infected arterial ulcer also contributing. Also possible cellulitis can be the primary source of infection -initial HR 119,BP in 90's,LA 2.6.wbc 12.1 -Source likely UTI.infected arterial ulcer with surrounding cellulitis contributing.,GI sxs of diarrhea likley viral which is now resolved , -NS bolus and then 150ml/h . Discontinued IV fluid -Received meropenem, clindamycin and azithromycin in ED. switched to Zosyn and vancomycin 03/20. Blood culture growing gram-negative rods. Discontinued vancomycin 03/21. Continue Zosyn. Consulted ID -Stool for C. difficile requested. No much leukocytosis. No recent antibiotic exposure. Diarrhea resolved -Blood culture 3/4 growing GNRs,UA with pyuria but UCX mixed howard , lactate trended down -KARI for PVD workup outpatient once cellulitis improved -Initially held Lasix and lisinopril.. Resumed 03/22 # UTI ,acute ,poa -antibiotics as above -CT KUB no obstruction # Watery diarrhea, resolved -probably viral # chronic systolic CHF due to ischemic cardiomyopathy -Ascites on CT/ pleural effusions on CXR - due to mild systolic dysfunction -Echo in November EF 50% with severe MR and basal inferior wall akinesis, mid inferior wall severe hypokinesis. Subsequent cardiac cath in December 2016 RCA occlusion and recommended medical therapy -Continue with home ASA, carvedilol , lisinopril 5 mg by mouth daily. Added atorvastatin 40 mg hs. She has follow-up appointment with on Apr 10 -Initially held Lasix and lisinopril.. Resumed 03/22 -Discontinued IV fluids 03/22 # Anemia -Heme/onc appointment on March 27 # Diabetes -Sliding-scale, hold metformin #History of esophageal cancer -Recent EGD unremarkable # h/o Afib -now in SR, continue carvedilol # CAD s/p recent angiogram without intervention -Continue home meds, aspirin and BB # suspected PAD and arterial ulcer -c/w ASA, added statin for PAD and CAD -LE venous duplex negative for DVT. Inguinal lymph nodes seen # small pleural effusions,chronic ,seen on prior CXRs -Due to systolic dysfunction # hyponatremia, improving -due to hypovolumia -c/w NS at 150ml/h. Discontinued 03/22 # Initially suspected pneumonia, ruled out -Pneumonia clinically unlikely. ppx -scd on left leg full code Patient admitted under inpatient status with expected length of stay > 2 midnights for severity of present symptoms, complexities of treatment plan and risk for adverse events disposition:. Pending blood culture sensitivity VTE Mechanical Devices: Venous Foot Pump Resuscitation Status: CPR: Attempt Resuscitation Reji Milner MD Mar 22, 2017 10:49
--- NOTE | 2017-03-22 12:47 | PROG NOTE ---
[address] [address] PROGRESS NOTE PATIENT: KRISTIN LOPEZ : 1935 MR#: [id number] ADMIT: 03/20/2017 JOB ID: [id number] DATE: 03/22/2017 INFECTIOUS DISEASE FOLLOWUP NOTE: REASON FOR FOLLOWUP: Gram-negative bacteremia. INTERVAL HISTORY: Overnight the patient reports she has been quite cold and she is asking for extra blankets. She denies rigors, however, and states she has had no noticeable fever. She also denies any significant shortness of breath or cough. She has no significant abdominal or flank pain. She does have some considerable pain still in her right paris area where she has a small skin defect. PHYSICAL EXAMINATION: Reveals an afebrile woman who is awake and alert. Temp 36.7. She has been afebrile throughout her hospital stay. Her pulse is 88, respiratory rate 20, blood pressure 113/73. She is saturating well on room air and does not appear to be in any great distress. Mental status clear. Oral cavity benign. Lungs relatively clear anteriorly bilaterally. No flank tenderness. Her abdomen is soft and nontender. The right lower extremity is still quite tender in a circumferential area around the distal paris where there is a small defect and surrounding erythema. LABORATORIES: Include a white count which is declining and is now normal at 7800. Previously it had been consistently 12,000. Her creatinine is 0.97. LFTs normal. Procalcitonin now 0.55, which is quite a bump from 0.09. Urinalysis had greater than 50 white cells. Cultures include a urine which grew mixed howard and blood cultures from 4/4 bottles growing a gram-negative lona. I spoke to the micro lab and they thought this was most likely a Morganella, or perhaps a Proteus, but it does not askew out by the BioFire PCR. IMAGING: Includes a CT which shows moderate ascites and bilateral pleural effusions. Also noticeable is a prominent uterus and a large hiatal hernia. The tib-fib plain x-ray did not show evidence of gas in the tissues and the admission chest x-ray showed basically the hiatal hernia. IMPRESSION: This is a bit of an odd case of a woman admitted with weakness, vague gastrointestinal symptoms, and right lead leg tenderness. She has not appeared very toxic throughout her hospital stay but we already have multiple blood cultures growing gram-negative rods of unknown source. I continue to suspect at least that the gram-negative bacteremia has arisen from her right leg, as this is the most obviously abnormal part of the anatomy. It is also possible it has arisen from the urinary tract and is simply lost in the mixed howard found in the urine culture. Less likely it could be of abdominal region and I see no reason to think this is primarily pulmonary process. It is also odd that she has ascites on her abdominal CT scan and I wonder how that ties in to this case. I see no recent notes from [facility] to help on reveled this situation. RECOMMENDATIONS: 1. We can continue with Zosyn at this point, while we await the identification of the organism. The patient seems to be improving with respect to her white count and she is nontoxic, with some apparent improvement in the right lower extremity cellulitis, so I think it is appropriate to continue. 2. As it becomes more clear what the nature of this organism is, it may be possible to send her home on oral therapy. Quinolones would be reasonable options here if the gram-negative organism in the blood is sensitive to Cipro and/or levo. 3. I will continue to follow this interesting case with you. Thank you very much.
--- NOTE | 2017-03-22 18:03 | NUR ---
no appetite pt has not eaten very much today and states that she feels like she is running out of energy. This RN has offered many different snacks and helped point out options on the menu. pt's states that she has eaten next to nothing today. pt then requests a bowl of fruit and yogurt, "maybe that will get things going (appetite)".
[2017-03-22] MEDS ORDERED: Vancomycin Serum Trough XX ONE (19:00)
[2017-03-23 00:41] VITALS: BP 133/82; PULSE 76; RESP 18; O2SAT 96
[2017-03-23] MEDS: Piperacillin-Tazo 3.375 Gm Inj 3.375 GM in Dextrose 5% Minibag Plus 50 ML IV SCH ×2 (03:36→11:01)
[2017-03-23 06:02] VITALS: BP 129/62; PULSE 66; RESP 18; O2SAT 96
[2017-03-23 06:19] VITALS: PULSE 113
[2017-03-23] MEDS: Insulin LISPRO 300 Unit/3 mL Inj SUBQ SCH ×2 (07:37→11:44)
[2017-03-23 08:15] LABS: BASOPHILS % (AUTO) 0.5 % (0-3); EOSINOPHILS % (AUTO) 1.8 % (0-5); MONOCYTES % (AUTO) 9.9 % (4-12); Mean Corpuscular Hemoglobin 25.8 pg (27.0-35.0); Mean Corpuscular Volume 80.9 fL (81-100); NEUTROPHILS % (AUTO) 78.7 % (40-74); Platelet Count 156 bil/L (150-400)
[2017-03-23 08:57] LABS: Magnesium 1.9 mg/dL (1.6-2.6)
[2017-03-23 09:53] VITALS: BP 124/74; PULSE 103; RESP 18; O2SAT 96
--- NOTE | 2017-03-23 11:57 | NUR ---
Evaluation completed. Please go to "Notes" then click on "Assessments and Notes" (bottom left corner of screen). Then select appropriate discipline tab on top of screen.
--- NOTE | 2017-03-23 12:09 | NUR ---
Social Work: Initial Assessment/Discharge/Multidisciplinary Rounds D: EMR reviewed. Please see initial assessment linked for more information. Pt is an 81 y/o female [place] - with a readmit risk score of 1 - for CAP and Cellulitis per H&P. Pt's insurance is Medicare and [facility] Supplemental. PCP is Zion Barrett MD. WANDY met with pt and spouse at bedside to conduct initial assessment. WANDY explained role, wrote phone number on white board, provided [facility] Discharge Checklist, and encouraged pt and spouse to contact SW for any discharge planning needs. Pt discussed in multidisciplinary rounds - per MD, pt is medically stable to discharge home with HH RN PT today. SW met with pt and provided HH choice list. Pt and spouse did not have a choice and SW determined [facility] based on [facility] Rotating Vendor Calendar. completed F2F. WANDY provided access and faxed F2F to [facility] new fax number [phone]. T/C to [facility] and [facility] for referral. [facility] confirmed receipt of F2F and access. [facility] confirmed they can open with pt tomorrow. WANDY provided [facility] with contact number for spouse. Pt lives at home with spouse in a single-story level home in [place]. Pt owns 4WW with a seat and uses it for ambulating long distances. Pt has ample support from her spouse at home. WANDY discussed discharge plan and process for opening with [facility]. Spouse requested [facility] call his number. SW provided number to [facility]. Pt and spouse do not have any concerns regarding discharge. Pt set to open with [facility] for RN PT. No other SW needs identified, no other MD orders received. A: Pt who is independent at baseline and has ample support from her spouse at home. Pt for whom HH is medically necessary as ordered by MD. P: Pt's spouse confirmed he will provide transport home today via POV. Pt to open with [facility] for RN PT tomorrow. F2F faxed and WANDY confirmed receipt. No other SW needs identified, no other MD orders received. ANTONY Mtz Addendum: 03/23/17 at 1225 by VERONICA DEAN Amended: Links added.
--- NOTE | 2017-03-23 12:18 | PCM.DIMED ---
Discharge Instructions Date of Service Mar 23, 2017 Dates of Hospitalization Mar 20, 2017 at 16:49 Discharge Diagnosis Discharge Diagnosis #Sepsis/gram negative bacteremia,acute,poa - due to cellulitis/infected arterial ulcer # UTI ,acute ,poa # Watery diarrhea, resolved # chronic systolic CHF due to ischemic cardiomyopathy # Anemia # Diabetes #History of esophageal cancer # h/o Afib not on anticoagulation # CAD s/p recent angiogram without intervention # suspected PAD and arterial ulcer # small pleural effusions,chronic ,seen on prior CXRs # hyponatremia, improving # Initially suspected pneumonia, ruled out Patient Instructions Patient Instructions You were hospitalized due to sepsis/bacteremia . Source of infection seems to be from the right leg cellulitis/infected ulcer. Please continue ciprofloxacin for 7 more days. Ulcer seems to be arterial . Please ask Dr Brownlee or PCP if you need KARI ( test to check lower extremity arterial Circulation) . # You also have atrial fibrillation. Ideally you need to be on blood thinners like warfarin.You had generalized weakness with a fall probably due to sepsis.Ask your PCP or artificial limb maker if you need to be on blood thinners if you don't have any further fall. Continue home physical therapy.home health for nursing and physical therapy.Follow-up with oncologist and artificial limb maker as scheduled. Follow-up Provider: Elissa Barrett MD Follow-up with PCP in: 1 week Provider: Yemi Brownlee MD Follow-up in: 2 weeks Reji Milner MD Mar 23, 2017 12:18
[2017-03-23] MEDS ORDERED: CIPR-231 PO (12:19)
[2017-03-23] MEDS ORDERED: ATOR40TA69 PO (12:19)
[2017-03-23] MEDS ORDERED: OXYC5TAB72 PO (12:20)
[2017-03-23 13:35] VITALS: BP 118/74; PULSE 66; RESP 18; O2SAT 97
--- NOTE | 2017-03-23 13:38 | PCM.DC.MED ---
Discharge Summary Date of Service Mar 23, 2017 Dates of Hospitalization Date of Hospital Admission Mar 20, 2017 at 16:49 Date of Discharge: Mar 23, 2017 Providers: Admitting Physician: Reji Langston MD Primary Care Physician: Elissa Barrett MD Attending Physician: Reji Langston MD Diagnosis at Time of Discharge Diagnosis at Time of Discharge #Sepsis/gram negative bacteremia,acute,poa - due to cellulitis/infected arterial ulcer # UTI ,acute ,poa # Watery diarrhea, resolved # chronic systolic CHF due to ischemic cardiomyopathy # Anemia # Diabetes #History of esophageal cancer # h/o Afib not on anticoagulation # CAD s/p recent angiogram without intervention # suspected PAD and arterial ulcer # small pleural effusions,chronic ,seen on prior CXRs # hyponatremia, improving # Initially suspected pneumonia, ruled out Consultations ID Dr Campos Procedures XRay, CTs & MRIs PROCEDURE: X-RAY CHEST ONE VIEW, PORTABLE ([id number]) INDICATIONS: infection IMPRESSION: 1. Left basilar opacity may be related to a large hiatal hernia but superimposed pneumonia cannot be excluded. 2. Small bilateral effusions. Dictated by: Bryant Kirkland M.D. on 03/20/2017 at 15:26 PROCEDURE: US VENOUS LEG DUPLEX BILATERAL INDICATIONS: pain IMPRESSION: No deep venous thrombosis identified within either the left or right lower extremities. Lymph nodes present within the right groin largest measuring up to 7 mm in maximal AP diameter. Recommend clinical correlation and management. Dictated by: Ricky Snyder RR Interpreted: Deshawn Barber MD on 03/21/2017 at 10: 12 PROCEDURE: CT KUB ([id number]) INDICATIONS: urosepsis IMPRESSION: 1. Moderate amount of ascites including bilateral pleural effusions and also some increased density of subcutaneous fat suggesting third spacing of fluid. 2. Prominent appearing uterus. Ovaries cannot be well defined. Suggest pelvic ultrasound to evaluate for abnormality of the structures. 3. No adenopathy or metastatic lesions are identified. No specific mass is seen. 4. Large hiatal hernia seen on previous studies. Old granulomatous disease. 5. Small nonobstructing calcification seen in each kidney vascular calcifications. Dictated by: Yariel Alvarez M.D. on 03/21/2017 at 11:56 Cardiac Echo Impression ECHO 12/13/16 Interpretation Summary Left ventricular ejection fraction is estimated to be 50 +/- 5%. There is basal inferior wall akinesis. There is mid inferior wall severe hypokinesis. There is moderate to severe mitral regurgitation. Compared to the prior echo study, there has been an increase in the severity of mitral regurgitation. There is mild aortic valve sclerosis. There is mild aortic regurgitation. The right ventricular systolic pressure is estimated at 64 mmHg assuming a right atrial pressure of 15 mm Hg. Compared to the prior echo exam, there has been an increase in TR severity. There is moderate tricuspid regurgitation. Other Diagnostics ANGIOGRAPHY: 01/11/17 1. Left main: No significant disease. 2. LAD is a tortuous vessel in its mid segment. It has a long tubular stenosis of about 40% to 60%. 3. Circumflex is nondominant. It has an eccentric, very focal discrete lesion of about 60% in its mid segment past the take-off of the first obtuse marginal branch. 4. The ramus intermedius is a moderate-caliber vessel and has a 50% lesion in its proximal part. 5. The right coronary artery is a dominant vessel. It is subtotally occluded past the takeoff of a large RV branch. The distal vessel is seen faintly via dcesj-ak-ovahw collaterals and it is also seen via qgro-gq-pgrvz collaterals. 6. LV-gram revealed LVEF of around 45%. 7. There is 2+ MR. MR was worse with post PVC beats. There is inferobasal akinesis. 8. FFR of the circumflex was 0.98, thereby indicating it is not hemodynamically significant. We attempted to do an FFR in the LAD, but because of the marked tortuosity of the vessel, we could not deliver a wire into the apical LAD. We tried using a balloon to redirect this wire; however, were unsuccessful. Given the fact that the LAD is tortuous and it is about a 2-2.5 mm vessel at that point, I decided to treat her medically and not persist with wiring. 9. In summary, this lady has moderate mitral regurgitation. She has mild to moderate pulmonary hypertension. Her LV function is mildly impaired. She has modest coronary artery disease in the left system. Her right coronary is totally occluded distally but this supplies an area that has already been infarcted. I think, her overall medical condition and advanced age, medical therapy would be appropriate. Yemi Brownlee MD 01/11/17 1011 <Electronically signed by Yemi Brownlee MD> 01/14/17 0852 Brief History per HPI 81-year-old lady with past medical history of diabetes, anemia, history of esophageal cancer presented with generalized weakness of 3 days, and worsening right leg pain of 3 d and diarrhea of one day. describes that the patient has been having generalized weakness and worsening right leg pain for 3 days unable to walk to bath room and has to use bedside commode for the last 3 days. right leg pain progressively worsened and patient unable to stand up and shouts when touched gently which prompted ED visit. She also had frequent watery diarrhea today with an episode of vomiting. Patient had on and off dysphagia for the last few months.EGD 12/04/16 unremarkable. referred to oncology for ongoing anemia and has an appointment on March 27. She has dry cough for the last few days. Denies fever. She also has some dyspnea. Denies abdominal pain. ED course: Initial HR 119, afebrile. WBC 12.1, hemoglobin 10.4, lactate 2.6,Na 132, magnesium 1.5 Blood cultures sent. Meropenem, clindamycin and azithromycin given for suspected cellulitis and pneumonia. Hospital Course 81-year-old lady with past medical history of diabetes, anemia, history of esophageal cancer presented with generalized weakness of 3 days, and worsening right leg pain of 3 d and diarrhea of one day. #Sepsis/gram negative bacteremia,acute,poa - due to cellulitis/infected arterial ulcer ,UTI unlikely given urine culture growing mixed howard -initial HR 119,BP in 90's,LA 2.6.wbc 12.1 -Source likely infected arterial ulcer with surrounding cellulitis -NS bolus and then 150ml/h . Discontinued IV fluid -Received meropenem, clindamycin and azithromycin in ED. switched to Zosyn and vancomycin 03/20. Blood culture growing gram-negative rods. Discontinued vancomycin 03/21. Continued Zosyn. Consulted ID.final culture morganelli morgani sensitive to cipro -Stool for C. difficile requested but Diarrhea resolved . No much leukocytosis. No recent antibiotic exposure. -Blood culture 3/4 growing GNRs,UA with pyuria but UCX mixed howard , lactate trended down -KARI for PVD workup outpatient once cellulitis improved -Initially held Lasix and lisinopril.. Resumed 03/22 # UTI ,acute ,poa -antibiotics as above -CT KUB no obstruction # Watery diarrhea, resolved -probably viral # chronic systolic CHF due to ischemic cardiomyopathy -Ascites on CT/ pleural effusions on CXR - due to mild systolic dysfunction -Echo in November EF 50% with severe MR and basal inferior wall akinesis, mid inferior wall severe hypokinesis. Subsequent cardiac cath in December 2016 RCA occlusion and recommended medical therapy -Continue with home ASA, carvedilol , lisinopril 5 mg by mouth daily. Added atorvastatin 40 mg hs. She has follow-up appointment with on Apr 10 -Initially held Lasix and lisinopril.. Resumed 03/22 -Discontinued IV fluids 03/22 # Anemia,history of esophageal cancer in remission -Heme/onc appointment on March 27 # Diabetes -Sliding-scale, resume metformin #History of esophageal cancer -Recent EGD unremarkable # h/o Afib not on AC - continue carvedilol -patient had recent fall due to probably sepsis. follow up with Dr Brownlee on Apr 10 and consider AC if no fall risk by then . high CHADs score # CAD s/p recent angiogram without intervention -Continue home meds, aspirin and BB # suspected PAD and arterial ulcer -c/w ASA, added statin for suspected PAD and CAD -LE venous duplex negative for DVT. Inguinal lymph nodes seen # small pleural effusions,chronic ,seen on prior CXRs -Due to systolic dysfunction # hyponatremia, improving -due to hypovolumia # Initially suspected pneumonia, ruled out -Pneumonia clinically unlikely. ppx -scd on left leg full code Patient admitted under inpatient status with expected length of stay > 2 midnights for severity of present symptoms, complexities of treatment plan and risk for adverse events disposition:. discharged on cipro for 7 more days to complete 10 days per ID HH for RN and PT due to deconditioning and leg ulcer Exam Vital Signs (Last) Date Time Temp Pulse Resp B/P Pulse Ox O2 Delivery O2 Flow Rate FiO2 03/23/17 09:53 36.4 103 18 124/74 96 Room Air 03/21/17 16:55 2.00 Exam Gen. patient is lying comfortably in hospital bed HEENT: Head is normocephalic atraumatic, Pupils equal and reactive, extraocular movements intact, Lungs bilateral basal rhonchi Heart tachycardic Abdomen soft nontender without hepatosplenomegaly Extremities pulses are present dorsalis pedis posterior tibialis and radial. Right paris 3x2 cm paris ulcer. Surrounding area erythematous and hot to touch. site is disproportionately very tender Skin is warm and dry there are no rashes, vitiligo Psych alert and oriented to person place and time Neuro cranial nerves II through XII are grossly intact Lymph: There is no lymphadenopathy appreciated in the cervical supra infraclavicular regions : no chu Test 03/20/17 14:59 03/20/17 15:20 03/20/17 19:00 03/20/17 20:11 Hold Purple Top Tube Received (Received) Hold Blue Top Tube Received (Received) Hold Red Top Tube Received (Received) Hold [place] Top Tube Received (Received) Hold [place] Top Tube Received (Received) Troponin T 0.034ug/L (0.0-0.011) Lactic Acid Level 1.2mmol/L (0.4-2.0) Phosphorus Level 2.8mg/dL (2.5-4.9) Pro-B-Type Natriuretic Peptide 5182pg/mL (0-738) Urine Color Yellow (YELLOW) Urine Appearance Turbid (CLEAR,HAZY) Urine pH 5.5 (5.0-8.0) Urine Specific Girard 1.025 (1.003-1.035) Urine Protein Tracemg/dL (NEG,TRACE) Urine Glucose (UA) Negativemg/dL (NEGATIVE) Urine Ketones Negativemg/dL (NEGATIVE) Urine Occult Blood Moderate (NEGATIVE) Urine Nitrite Negative (NEGATIVE) Urine Bilirubin Negative (NEGATIVE) Urine Urobilinogen Normalmg/dL (NORMAL) Urine Leukocyte Esterase Large (NEGATIVE) Urine RBC 3-10/hpf (0-2) Urine WBC >50/hpf (0-5) Urine Epithelial Cells Many/hpf (NONE-MOD) Urine Crystals None seen (NONE SEEN) Urine Bacteria Many/hpf (NONE-FEW) Urine Hyaline Casts None/lpf (NONE) Urine Granular Casts None seen (NONE SEEN) Urine Waxy Casts None seen (NONE SEEN) Urine Red Blood Cell Casts None seen (NONE SEEN) Urine White Blood Cell Casts None seen (NONE SEEN) Urine Mucus None seen (None Seen) Urine Trichomonas None seen (NONE SEEN) Urine Yeast None (NONE SEEN) Urinalysis Comment None Urine Culture Reflexed Indicated Test 03/21/17 05:36 03/23/17 07:55 Thyroid Stimulating Hormone (TSH) 2.390uIU/mL (0.450-4.500) Free Thyroxine 1.02ng/dL (0.82-1.77) White Blood Count 6.6th/mm3 (3.8-10.1) Red Blood Count 3.88mil/mm3 (3.90-5.20) Hemoglobin 10.0g/dL (12.0-15.6) Hematocrit 31.4% (35.0-46.0) Mean Corpuscular Volume 80.9fL (81-100) Mean Corpuscular Hemoglobin 25.8pg (27.0-35.0) Mean Corpuscular Hemoglobin Concent 31.8% (32.0-37.0) Red Cell Distribution Width 24.2% (12.3-15.4) Platelet Count 156bil/L (150-400) Neutrophils (%) (Auto) 78.7% (40-74) Lymphocytes (%) (Auto) 8.8% (14-46) Monocytes (%) (Auto) 9.9% (4-12) Eosinophils (%) (Auto) 1.8% (0-5) Basophils (%) (Auto) 0.5% (0-3) Sodium Level 135mEq/L (134-144) Potassium Level 4.3mEq/L (3.5-5.2) Chloride Level 101mEq/L (97-108) Carbon Dioxide Level 18mmol/L (18-29) Blood Urea Nitrogen 16mg/dL (8-27) Creatinine 0.99mg/dL (0.57-1.00) Estimat Glomerular Filtration Rate 77mL/min (>59) Glucose Level 108mg/dL (60-99) Calcium Level 8.1mg/dL (8.5-10.1) Magnesium Level 1.9mg/dL (1.6-2.6) Total Bilirubin 0.8mg/dL (0.0-1.2) Aspartate Amino Transf (AST/SGOT) 18U/L (0-50) Alanine Aminotransferase (ALT/SGPT) 8U/L (0-32) Alkaline Phosphatase 80U/L (25-165) Total Protein 5.7g/dL (6.4-8.4) Albumin 3.5g/dL (3.4-5.0) Procalcitonin 0.39ng/mL (0.00-0.08) Microbiology Results Microbiology CAREY CULTURE BLOOD Final 03/23/17-0648 Organism 1 MORGANELL MORGANII SP MORGANII GRAM STAIN RESULT GRAM NEGATIVE RODS BC BOTTLE Isolated from Anaerobic Bottle of Set Drawn DATE CALLED: 03/21/17 TIME CALLED: [phone] CALLED BY: AJIT FLOOR/DOCTOR: NICHOLAS Rosas BC READ BACK Y TYPE OF DRAW NURSE COLLLECT TYPE NOT SPECIFIED TIME OF POSITIVITY 0530 GRAM STAIN RESULT GRAM NEGATIVE RODS BC BOTTLE2 Isolated from Aerobic Bottle of Set Drawn DATE CALLED: 03/21/17 TIME CALLED: 704 CALLED BY: OZZIE FLOOR/DOCTOR: ERVIN/YOLANDA Avery BC READ BACK YES TYPE OF DRAW NURSE COLLECT TYPE NOT INDICATED TIME OF POSITIVITY 0650 ISOLATED FROM FOUR OF FOUR BOTTLES COLLECTED 03/20/17. 1. MORGANELL MORGANII SP MORGANII M.I.C Interp --------- ------ * AMIKACIN <=2 S * AMPICILLIN >=32 R * AMPICILLIN/SULBACTAM 16 I * CEFAZOLIN >=64 R * CEFEPIME <=1 S * CEFOXITIN 8 S * CEFTRIAXONE <=1 S * CIPROFLOXACIN <=0.25 S * ERTAPENEM <=0.5 S CONTINUED ON NEXT PAGE RUN DATE: 03/23/17 [facility] LIVE PAGE 2 RUN TIME: 0648 Specimen Inquiry PHYSICIAN Patient: KRISTIN LOPEZ [id number] (Continued) Specimen: [id number] Collected: 03/20/17 Received: 03/20/17-1536 (Continued) Procedure Result Verified Site CAREY CULTURE BLOOD Final (continued) 03/23/17-647 1. ELSIE MORGANII SP MORGANII (continued) Antolin Interp --------- ------ * GENTAMICIN <=1 S * MEROPENEM <=0.25 S * TOBRAMYCIN <=1 S * TRIMETHOPRIM/SULFAMETHOXAZOLE <=20 S * PIPERACILLIN/TAZOBACTAM <=4 S Discharge Medications Discharge Medications Ascorbic Acid (Vitamin C) 250 Mg Tab.chew 250 MG PO DAILY (Reported) Aspirin (Aspirin) 81 Mg Tablet 81 MG PO DAILY (Reported) Atorvastatin Calcium (Atorvastatin Calcium) 40 Mg Tablet 40 MG PO HS Prescribed by: REJI LANGSTON MD Carvedilol (Carvedilol) 3.125 Mg Tablet 3.125 MG PO BID (Reported) Ciprofloxacin (Cipro) 500 Mg Tablet 500 MG PO BID Prescribed by: REJI LANGSTON MD Ferrous Sulfate (Ferrous Sulfate) 325 Mg Tablet 325 MG PO DAILY (Reported) Furosemide (Furosemide) 40 Mg Tablet 20-40 MG PO DAILY (Reported) take 1/2 tab daily/ if wt.gain>2lbs, take 1tab Lisinopril (Lisinopril) 5 Mg Tablet 5 MG PO DAILY (Reported) Metformin (Metformin) 500 Mg Tablet 500 MG PO BID (Reported) Vit B Comp/C/FA/Iron/Vit E (Vitamin B Complex Tablet) 1 Each Tablet 1 EACH PO DAILY (Reported) As needed oxyCODONE (oxyCODONE) 5 Mg Tablet 5 MG PO Q4H PRN PRN For Moderate Pain Prescribed by: REJI LANGSTON MD Followup Plan Disposition: home with for PT and RN Patient Instructions You were hospitalized due to sepsis/bacteremia . Source of infection seems to be from the right leg cellulitis/infected ulcer. Please continue ciprofloxacin for 7 more days. Ulcer seems to be arterial . Please ask Dr Brownlee or PCP if you need KARI ( test to check lower extremity arterial Circulation) . # You also have atrial fibrillation. Ideally you need to be on blood thinners like warfarin.You had generalized weakness with a fall probably due to sepsis.Ask your PCP or [facility] if you need to be on blood thinners if you don't have any further fall. Continue home physical therapy.home health for nursing and physical therapy.Follow-up with oncologist and [facility] as scheduled. Follow-up Provider: Elissa Barrett MD Follow-up with PCP in: 1 week Provider: Yemi Brownlee MD Follow-up in: 2 weeks Time spent > 35 minutes coordinating discharge copies to: Elissa Barrett MD; Yemi Brownlee MD, Melaku MD Mar 23, 2017 13:38
--- NOTE | 2017-03-23 13:54 | NUR ---
Discharge Pt d/cd home with via wc by an aide at 1350. pt denied pain. IV d/cd, VSS, all personal belongings left home with pt. Pt DENIED need of discharge information, stated "I am familiar with this"
== END 2017-03-23 13:50 | disposition home health service (06) | DRG 872 ==
LOC: SED 14:21 → MPC 16:49
PROVIDERS: ADMIT Internal Medicine; ATTEND Internal Medicine
DX: A41.59 Other Gram-negative sepsis (principal); N39.0 Urinary tract infection, site not specified; E87.1 Hypo-osmolality and hyponatremia; I50.22 Chronic systolic (congestive) heart failure; L03.115 Cellulitis of right lower limb; A41.9 Sepsis, unspecified organism; E11.9 Type 2 diabetes mellitus without complications; D64.9 Anemia, unspecified; I25.5 Ischemic cardiomyopathy; I25.10 Atherosclerotic heart disease of native coronary artery without angina pectoris; K44.9 Diaphragmatic hernia without obstruction or gangrene; Z79.82 Long term (current) use of aspirin